=== PATIENT | male | born 1950 | race Caucasian/White ===

== ENCOUNTER → 2016-11-29 | Outpatient (CLI) | payer BC ==
[~2016-11-29] MED LIST: CHOL100010 PO; GLC/500 PO; LIRA18IN SQ; LOSA25TA18 PO
[2016-11-29 12:52] LABS: BLOOD UREA NITROGEN 18 mg/dl (7-18); BUN/CREATININE RATIO 18.2 (10-20); CALCIUM 10.1 mg/dl (8.5-10.1); CARBON DIOXIDE 26 mmol/L (21-32); CHLORIDE 102 mmol/L (98-107); GLUCOSE 107 mg/dl (70-99); POTASSIUM 4.2 mmol/L (3.5-5.1); SODIUM 138 mmol/L (136-145)
[2016-11-29 13:11] LABS: ESTIMATED AVERAGE GLUCOSE 134 mg/dl; HA1C FLAG Normal (Normal)
== END | disposition home or self-care (01) ==
LOC: C.LABPVFM 10:54
PROVIDERS: ATTEND Family Medicine
DX: E11.9 Type 2 diabetes mellitus without complications (principal)

== ENCOUNTER → 2017-04-27 | Outpatient (CLI) | payer BC ==
[2017-04-27 09:53] LABS: BLOOD UREA NITROGEN 23 mg/dl (7-18); BUN/CREATININE RATIO 19.2 (10-20); CALCIUM 9.7 mg/dl (8.5-10.1); CARBON DIOXIDE 28 mmol/L (21-32); CHLORIDE 102 mmol/L (98-107); GLUCOSE 134 mg/dl (70-99); POTASSIUM 4.6 mmol/L (3.5-5.1); SODIUM 138 mmol/L (136-145)
[2017-04-27 09:56] LABS: CHOLESTEROL 265 mg/dl (0-200); CHOLESTEROL/HDL RATIO 6.5; HDL CHOLESTEROL 41 mg/dl; LDL CHOLESTEROL CALCULATED 174 mg/dl; TRIGLYCERIDES 252 mg/dl (0-150); VERY LOW DENSITY LIPOPROT CALC 50 mg/dl
[2017-04-27 10:01] LABS: ESTIMATED AVERAGE GLUCOSE 157 mg/dl; HA1C FLAG Normal (Normal)
== END | disposition home or self-care (01) ==
LOC: C.LAB 07:35
PROVIDERS: ATTEND Family Medicine
DX: E78.2 Mixed hyperlipidemia (principal); E11.9 Type 2 diabetes mellitus without complications

== ENCOUNTER → 2017-09-08 | Outpatient (CLI) | payer BC ==
[2017-09-08 09:30] LABS: BLOOD UREA NITROGEN 16 mg/dl (7-18); BUN/CREATININE RATIO 13.9 (10-20); CARBON DIOXIDE 30 mmol/L (21-32); CHLORIDE 99 mmol/L (98-107); CHOLESTEROL 268 mg/dl (0-200); CREATININE 1.13 mg/dl (0.60-1.40); GLUCOSE 129 mg/dl (70-99); POTASSIUM 4.3 mmol/L (3.5-5.1); SODIUM 136 mmol/L (136-145)
[2017-09-08 09:34] LABS: CHOLESTEROL/HDL RATIO 6.5; HDL CHOLESTEROL 41 mg/dl; LDL CHOLESTEROL CALCULATED 160 mg/dl; TRIGLYCERIDES 337 mg/dl (0-150); VERY LOW DENSITY LIPOPROT CALC 67 mg/dl
[2017-09-09 07:36] LABS: ESTIMATED AVERAGE GLUCOSE 169 mg/dl; HA1C FLAG Normal (Normal)
== END | disposition home or self-care (01) ==
LOC: C.LAB 07:09
PROVIDERS: ATTEND Family Medicine
DX: E11.9 Type 2 diabetes mellitus without complications (principal); E78.2 Mixed hyperlipidemia

== ENCOUNTER → 2018-03-05 | Outpatient (CLI) | payer BC ==
[2018-03-05 09:50] LABS: BASO % 0.4 %; BASO ABS # 0.02 K/uL (0-0.2); EOS % 4.8 %; EOS ABS # 0.23 K/uL (0-0.5); HEMATOCRIT 44.9 % (42-52); HEMOGLOBIN 15.4 g/dL (14.0-18.0); IG# 0.02 K/uL (0.00-0.02); LYMPH % 39.3 %; MEAN CELL VOLUME 91.8 fL (80-100); MEAN CORPUSCULAR HEMOGLOBIN 31.5 pg (25-34); MEAN CORPUSCULAR HGB CONC 34.3 g/dl (32-36); MEAN PLATELET VOLUME 10.5 fL (7.4-10.4); MONO % 6.8 %; MONO ABS # 0.33 K/uL (0.11-0.59); NEUT % 48.3 %; NEUT ABS # 2.33 K/uL (1.4-6.5); PLATELET COUNT 136 K/uL (130-400); RED CELL DISTRIBUTION WIDTH CV 13.1 % (11.5-14.5); RED CELL DISTRIBUTION WIDTH SD 43.8 fL (36.4-46.3); WHITE BLOOD COUNT 4.83 K/uL (4.8-10.8)
[2018-03-05 10:03] LABS: ALBUMIN 4.5 gm/dl (3.4-5.0); ALKALINE PHOSPHATASE 55 U/L (45-117); ALT/SGPT 47 U/L (12-78); AST/SGOT 22 U/L (15-37); BLOOD UREA NITROGEN 19 mg/dl (7-18); CALCIUM 9.8 mg/dl (8.5-10.1); CARBON DIOXIDE 30 mmol/L (21-32); CHOLESTEROL 227 mg/dl (0-200); CREATININE 1.29 mg/dl (0.60-1.40); GLUCOSE 141 mg/dl (70-99); LDL CHOLESTEROL CALCULATED 141 mg/dl; POTASSIUM 4.2 mmol/L (3.5-5.1); SODIUM 138 mmol/L (136-145); TOTAL PROTEIN 7.6 gm/dl (6.4-8.2)
[2018-03-05 10:43] LABS: HEMOGLOBIN A1C 7.4 % (4.5-5.6)
== END | disposition home or self-care (01) ==
LOC: C.LAB 07:12
PROVIDERS: ATTEND Neuromusculoskeletal Medicine & OMM
DX: E11.9 Type 2 diabetes mellitus without complications (principal); E78.2 Mixed hyperlipidemia; I10 Essential (primary) hypertension

== ENCOUNTER 2025-04-24 11:03 | Inpatient (IN) ==
--- NOTE | 2025-04-24 11:23 | Emergency Department Note ---
Impression & Plan Weakness, Nausea Admission ED Provider Note HPI: History obtained from patient. The patient is a 75-year-old gentleman with history of rheumatoid arthritis, presents the emergency department with a chief complaint of generalized weakness. Patient states over the past 2 weeks since he has started his new medication (Rinvoq), he has generally had less energy to the point where he is now having difficulty getting out of bed because he feels so weak and fatigued. Patient denies any focal complaint of pain. Patient states his symptoms do correlate with starting his Rinvoq and he is concerned that this is the reason why he is feeling so weak. On arrival here to the ED the patient is alert, he is hypertensive but otherwise hemodynamically stable, he does not have any focal deficits on my initial evaluation. ROS: - Per HPI Differential Diagnosis: Medication reaction/side effect, viral gastroenteritis, small bowel obstruction, acute kidney injury/acute dehydration, critical electrolyte abnormalities,, amongst other potential pathologies. *Outpatient medications and allergy history reviewed. 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 Lab work shows no leukocytosis, hemoglobin is normal, platelet count is normal, CMP shows hyponatremia at 128 which is acute in comparison to the patient's previous lab work. There is no evidence of acute kidney injury, troponin is negative x 1. EKG shows sinus tachycardia with rate of 107, no acute ischemic changes are noted. Patient denies any chest pain or shortness of breath. On my reevaluation the patient states that he still feels very weak. He believes his symptoms correlate well with his initiation of Rinvoq, there is a side effect profile that suggest the risks of weakness and lethargy with this medication. Patient does also complain of severe nausea, reassessment he has an emesis bag at the bedside, this was not an initial complaint. Following my evaluation and discussion with the patient and his , CT imaging of the abdomen pelvis was obtained that did not show any evidence of any acute surgical process within the abdomen/pelvis. There is no evidence of bowel obstruction. I discussed outpatient management with the patient and his , they are in agreement, patient failed his ambulatory trial shortly thereafter, bedside RN said the patient was barely able to stand up at the side of the bed without becoming wobbly and off balance. He did not have any true ataxia on finger-nose testing bilaterally on my exam but he did have some delay in his ability to touch my fingers. Given his ambulatory dysfunction, I did order CT angiography of the head and neck, his states that he has had this issue most significantly over about the past 2 to 3 days, she notes that he did go to the grocery store by himself 4 days ago and seemed to do fine when he was ambulating throughout the store with a grocery cart. This is a marked change for him according to his . CT angiography of the head and neck was obtained, there is evidence of multiple areas of stenosis without any acute ischemic stroke or large vessel occlusion noted. No evidence of any intracranial hemorrhage. There is note of possible opacity in the left lung on senior audit manager film, therefore will order dedicated chest x- ray and urine Legionella given the patient's hyponatremia. Blood cultures were ordered and procalcitonin was added to the patient's blood work. Given the patient's inability to ambulate with hyponatremia, I do feel he needs to be admitted to the hospital for further care. He was given an aspirin here in the ED. He has been symptomatic here for multiple days therefore he is not a candidate for any potential thrombolytics. Case was discussed with the on-call [facility] service midlevel provider, and the patient was placed for admission to the service of Dr. Dorman. Consultants/Discussions held with other healthcare providers: - Hospitalist, Dr. Dorman Disposition discussion held by myself with: - Patient and patient's at the bedside Diagnosis: 1. Ambulatory dysfunction, acute 2. Hyponatremia, acute 3. Generalized weakness/fatigue, acute Disposition: Admission Miko Padilla DO Emergency Medicine Past Med/Surg History Problem List (Updated 04/24/25 @ 14:28 by Miko Padilla DO) Nausea (Acute) Weakness (Acute) Statin myopathy (Acute) Encounter for pre-operative examination Encounter for pre-operative examination Dog bite of finger (Acute) Type 2 diabetes mellitus Benign essential hypertension Male erectile disorder of organic origin Mixed hyperlipidemia Stage 3 chronic kidney disease Benign neoplasm of colon Medical History (Updated 04/24/25 @ 14:28 by Miko Padilla DO) Osteoarthritis Chronic kidney disease stage 3 Diabetes mellitus, type 2 NIDDM Hyperlipidemia Surgical History History of umbilical hernia repair History of colonoscopy Hx of tonsillectomy H/O adenoidectomy H/O vasectomy Family History Father Prostate cancer Urinary bladder cancer Unknown Diabetes Mother Breast cancer Other No family history of adverse response to anesthesia Denies family history of Colon cancer Ovarian cancer Myocardial infarction Social History Smoking Status: Former smoker Second Hand Exposure: Yes (hx as a child); Do You Dip or Chew Tobacco: No; Hx Alcohol Use: Yes Alcohol type: wine Alcohol Intake Frequency Comment: 1-2/ week Hx Substance Use: No Preferred Language: Syriac Communication Ability: Effective Visual Impairment: No Limitations Hearing Ability: Normal 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 Beliefs That Will Affect Care: None marital status: Current Living Situation: Spouse current occupational status: retired Feels Safe at Home: Yes Childhood Exposure to Second-Hand Smoke: Yes Dental Care, Regularly: Yes Physical Activity Frequency: 5-6 Times per Week Seatbelt Use: always Sunscreen Use: Yes Do you think of yourself as: straight/heterosexual Assistive Devices: None Allergies Allergies Allergy/AdvReac Type Severity Reaction Status Date / Time hydrocodone [From Vicodin] Allergy Severe itchy Verified 12/15/20 07:55 atorvastatin Allergy Intermediate muscle Verified 12/15/20 07:55 pains simvastatin [From Zocor] AdvReac Intermediate muscle Verified 12/15/20 07:55 pains niacin AdvReac Unknown flushing Verified 12/15/20 07:55 with burning and itching Home Meds Home Medications Medication Instructions Recorded Confirmed magnesium oxide 400 mg (241.3 mg 400 mg PO DAILY #30 tabs 06/13/19 12/15/20 magnesium) tablet vardenafil 20 mg tablet (Levitra) 20 mg PO UD PRN sexual activity 06/20/19 12/15/20 #30 tabs cholecalciferol (vitamin D3) 25 1,000 units PO DAILY 12/16/19 12/15/20 mcg (1,000 unit) capsule Previous Rx's Medication Instructions Recorded peg 3350-electrolytes 236 240 ml PO .COMPLEX #4,000 mL 12/24/19 gram-22.74 gram-6.74 gram-5.86 gram solution (Golytely) glimepiride 2 mg tablet 2 mg PO DAILY #180 tabs 06/16/20 losartan 25 mg tablet 25 mg PO DAILY #90 tabs 06/16/20 canagliflozin 100 mg tablet 100 mg PO DAILY #90 tabs 09/25/20 (Invokana) omega-3 acid ethyl esters 1 gram 1 cap PO DAILY #90 caps 11/04/20 capsule (Lovaza) ezetimibe 10 mg tablet (Zetia) 10 mg PO DAILY #90 tabs 11/18/20 metformin 500 mg tablet,extended 500 mg PO .COMPLEX #270 tabs 12/23/20 release 24 hr fenofibrate 160 mg tablet 160 mg PO DAILY #90 tabs 03/09/21 ondansetron HCl 4 mg tablet 4 mg PO Q8H PRN nausea and 04/24/25 vomiting 5 days #14 tabs Results & Data (ED) Vital Signs Vital Signs - 24 hr 04/24/25 11:04 04/24/25 11:14 04/24/25 11:19 Temperature 37.3 C Temperature Source Oral Pulse Rate 107 H 106 H Pulse Rate [Right Finger] Respiratory Rate 21 Respiratory Effort / Characteristics Respiratory Depth Normal Respiratory Pattern Blood Pressure 167/107 H Blood Pressure [Right Arm] Blood Pressure Mean 127 Blood Pressure Mean [Right Arm] Blood Pressure Position Semi-fowlers Blood Pressure Position [Right Arm] Pulse Oximetry 94 Oxygen Delivery Method Room Air Room Air Sepsis Recent Fever Within 48 Hours No Sepsis New/Unexplained Change in Mental Status No Sepsis Action Taken by Nursing No Action Required 04/24/25 11:33 04/24/25 12:06 04/24/25 12:30 Temperature Temperature Source Pulse Rate 103 H 98 H 103 H Pulse Rate [Right Finger] Respiratory Rate 19 21 28 H Respiratory Effort / Characteristics Respiratory Depth Respiratory Pattern Blood Pressure 165/121 H 163/98 H Blood Pressure [Right Arm] Blood Pressure Mean 135 119 Blood Pressure Mean [Right Arm] Blood Pressure Position Blood Pressure Position [Right Arm] Pulse Oximetry Oxygen Delivery Method Sepsis Recent Fever Within 48 Hours Sepsis New/Unexplained Change in Mental Status Sepsis Action Taken by Nursing 04/24/25 13:03 04/24/25 13:33 04/24/25 14:21 Temperature Temperature Source Pulse Rate 96 H 100 H 97 H Pulse Rate [Right Finger] Respiratory Rate 28 H 27 H 26 H Respiratory Effort / Characteristics Respiratory Depth Respiratory Pattern Blood Pressure 151/111 H 166/112 H Blood Pressure [Right Arm] Blood Pressure Mean 124 130 Blood Pressure Mean [Right Arm] Blood Pressure Position Blood Pressure Position [Right Arm] Pulse Oximetry Oxygen Delivery Method Sepsis Recent Fever Within 48 Hours Sepsis New/Unexplained Change in Mental Status Sepsis Action Taken by Nursing 04/24/25 15:47 Temperature Temperature Source Pulse Rate Pulse Rate [Right Finger] 101 H Respiratory Rate 16 Respiratory Effort / Characteristics Non-Labored Spontaneous Respiratory Depth Normal Respiratory Pattern Regular Blood Pressure Blood Pressure [Right Arm] 175/111 H Blood Pressure Mean Blood Pressure Mean [Right Arm] 132 Blood Pressure Position Blood Pressure Position [Right Arm] Sitting Pulse Oximetry Oxygen Delivery Method Room Air Sepsis Recent Fever Within 48 Hours Sepsis New/Unexplained Change in Mental Status Sepsis Action Taken by Nursing Laboratory Data 04/24/25 11:29 04/24/25 11:29 Lab Results 04/24/25 04/24/25 Range/Units 11:29 15:53 WBC 8.02 (4.8-10.8) K/ul RBC 4.63 L (4.70-6.10) M/uL Hgb 15.4 (14.0-18.0) g/dl Hct 44.2 (42.0-52.0) % MCV 95.5 (80.0-100.0) fL MCH 33.3 (25.0-34.0) pg MCHC 34.8 (32.0-36.0) g/dL RDW Std Deviation 42.6 (36.4-46.3) fL RDW Coeff of Drake 12.5 (11.5-14.5) % Plt Count 135 (130-400) K/uL MPV 10.4 (9.4-12.4) fL Immature Gran % (Auto) 0.4 % Neut % (Auto) 83.4 % Lymph % (Auto) 6.5 % Toombs % (Auto) 9.6 % Eos % (Auto) 0.0 % Baso % (Auto) 0.1 % Neut # (Auto) 6.69 H (1.40-6.50) K/uL Lymph # (Auto) 0.52 L (1.20-3.40) K/uL Toombs # (Auto) 0.77 H (0.11-0.59) K/uL Eos # (Auto) 0.00 (0.00-0.50) K/uL Baso # (Auto) 0.01 (0.00-0.20) K/uL Immature Gran # (Auto) 0.03 (0.01-0.20) K/uL PT 11.2 (9.0-12.0) Seconds INR 1.0 (0.9-1.1) Sodium 128 L (136-145) mmol/L Potassium 4.5 (3.5-5.1) mmol/L Chloride 95 L (98-107) mmol/L Carbon Dioxide 25 (21-32) mmol/L Anion Gap 8 (3-11) BUN 15 (6-23) mg/dl Creatinine 1.29 (0.6-1.4) mg/dl Est Cr Clr Drug Dosing 65.1 ml/min eGFR 57.11 BUN/Creatinine Ratio 11.6 (10-20) Glucose 189 H (70-99(Fasting)) mg/dl Calcium 9.9 (8.6-10.3) mg/dl Total Bilirubin 1.3 H (0.2-1.0) mg/dl AST 25 (13-39) U/L ALT 23 (7-52) U/L Alkaline Phosphatase 39 (34-104) U/L Troponin I High Sens 5.6 (0-20) pg/ml Total Protein 7.6 (6.0-8.3) gm/dl Albumin 4.8 (3.4-5.0) gm/dl Globulin 2.8 (2.5-4.0) gm/dl Albumin/Globulin Ratio 1.7 (0.9-2) Urine Comment Administered Medications Sodium Chloride (Nss) 1,000 mls @ 999 mls/hr IV .Q1H1M ONE Stop: 04/24/25 16:48 Last Admin: 04/24/25 15:51 Dose: 999 mls/hr Documented By: [facility] [place]ations Sodium Chloride (Nss) 500 mls @ 999 mls/hr IV .Q31M STA Stop: 04/24/25 11:50 Last Infusion: 04/24/25 14:16 Dose: Infused Documented By: Admin: 04/24/25 11:34 Dose: 999 mls/hr Documented By: CEF Ioversol (Optiray 320 100ml) 91 ml IV ONCE ONE Stop: 04/24/25 14:02 Last Admin: 04/24/25 14:01 Dose: 91 ml Documented By: MAHSA Ioversol (Optiray 320 125ml) 115 ml IV ONCE ONE Stop: 04/24/25 15:29 Last Admin: 04/24/25 15:28 Dose: 115 ml Documented By: REBECCA Meclizine HCl (Meclizine Hcl 25 Mg Tab) 25 mg PO NOW STA Stop: 04/24/25 14:49 Last Admin: 04/24/25 15:48 Dose: 25 mg Documented By: CARLOS Ondansetron HCl (Ondansetron Inj 2 Mg/Ml 2 Ml Vial) 4 mg IV NOW STA Stop: 04/24/25 13:40 Last Admin: 04/24/25 14:15 Dose: 4 mg Documented By: TERESA Imaging Data Radiologist's Impression: Abdomen/Pelvis CT 04/24/25 13:39 CT SCAN OF THE ABDOMEN AND PELVIS WITH IV CONTRAST CLINICAL HISTORY: Generalized abdominal pain. COMPARISON STUDY: No priors TECHNIQUE: Following the IV administration of 91 cc of Optiray 320, CT scan of the abdomen and pelvis is performed from the lung bases to the proximal femora. Images are reviewed in the axial, sagittal, and coronal planes. IV contrast was administered without complication. A dose lowering technique was utilized adhering to the principles of ALARA. The examination is degraded by motion artifact. CT DOSE: 1643.83 mGy.cm FINDINGS: Lung bases: The heart is enlarged and without pericardial effusion. The coronary arteries are densely calcified. There is a tiny hiatal hernia. Emphysematous change is noted. Scarring/atelectasis is seen at the lung bases. No airspace consolidation or pleural effusion is identified. Liver: The contrast-enhanced liver is enlarged, measuring over 20 cm in craniocaudal length. Attenuation is diffusely diminished indicating severe steatosis. Fatty sparing is seen adjacent to the gallbladder fossa. There is no intrahepatic biliary ductal dilatation. The hepatic veins and portal veins are patent. Gallbladder: Unremarkable. Spleen: Normal in size and attenuation. Pancreas: Unremarkable. Adrenal glands: There is nonspecific thickening of the adrenal glands. Kidneys: The contrast enhanced kidneys are normal in size and without hydronephrosis. The kidneys enhance symmetrically. A 6 mm nonobstructing calculus is seen in the right lower pole. No left renal calculi are identified on this contrast-enhanced examination and no ureteral stone is seen. Bilateral cortical and renal sinus cysts measure up to 1.8 cm. Abdominal vasculature: There is advanced atherosclerotic calcification and mild ectasia of the abdominal aorta. Bowel: There is mild to moderate clonic fecal retention. No bowel obstruction is seen. A small bowel loops contained within a right inguinal hernia. The appendix is not visualized. Peritoneum: There is no intraperitoneal free air or abdominal ascites. Lymphadenopathy: None. Pelvic viscera: The prostate gland is enlarged and heterogeneous. The bladder wall appears thickened/trabeculated indicating chronic outlet obstruction. A right large left inguinal hernias. The right inguinal hernia contains a segment of bowel. Skeletal structures: The skeletal structures are osteopenic. There is moderate lumbosacral spondylosis. No lytic or blastic lesions are seen. IMPRESSION: 1. No acute infectious or inflammatory findings are identified in the abdomen or pelvis. 2. Cardiomegaly and emphysema. 3. Right-sided nephrolithiasis. 4. There are right larger than left inguinal hernias. The right inguinal hernia contains a nonobstructed segment of small bowel. 5. The liver is enlarged and steatotic. 6. Additional findings as above. ACT 112: Negative or not required by law. Electronically signed by: Matt Landaverde M.D. 04/24/2025 2:22 PM Head CTA 04/24/25 14:47 CT angio head wo/w CLINICAL HISTORY: ataxia with ambulation COMPARISON STUDY: No previous studies for comparison. TECHNIQUE: Unenhanced and arterial phase imaging of the head was performed. Intravenous injection of 115 cc of Optiray 320 IV was uneventful. Sagittal and coronal reformats were viewed as well as maximal intensity projections on an independent 3-D workstation. A dose lowering technique was utilized adhering to the principles of ALARA. FINDINGS: This exam is mildly compromised by motion artifact. Intravascular contrast from recent contrast-enhanced CT of the abdomen and pelvis is present. No acute intracranial hemorrhage, midline shift or mass effect is present. Ventricular system is unremarkable. White matter hypodensities suggest small vessel disease. There is extensive calcified atherosclerotic plaque within the bilateral cavernous carotids which results in moderate stenosis of the cavernous carotids. There are are moderate to severe multifocal stenoses within the right middle cerebral artery. There is moderate stenosis of the intracranial portion of left vertebral artery as well as the basilar artery. Posterior cerebral arteries are patent. No large vessel occlusion is identified. There is no intracranial aneurysm. IMPRESSION: 1. No acute intracranial findings. Mild motion artifact. 2. No large vessel occlusion. No intracranial aneurysm. 3. 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 ACT 112: Negative or not required by law. Electronically signed by: Pepito Taylor M.D. 04/24/2025 3:48 PM Neck CTA 04/24/25 14:47 CT ANGIOGRAM OF THE NECK CLINICAL HISTORY: Ataxia. COMPARISON STUDY: No priors TECHNIQUE: Following the IV administration of 115 of Optiray 320, CT angiogram of the neck was performed from the aortic arch to the skull base. Images are reviewed in the axial, sagittal, and coronal planes. 3-D MIPS images are created and assessed. IV contrast was administered without complication. All measurements were calculated based on NASCET criteria. A dose lowering technique was utilized adhering to the principles of ALARA. FINDINGS: Thoracic aorta: There is atherosclerotic calcification of the thoracic aorta. Visualized portions of the thoracic aorta are normal in caliber. The aortic arch demonstrates standard 3-vessel anatomy. Right carotid arterial system: The right common carotid artery is widely patent noting atherosclerotic plaque and irregularity. There is advanced atherosclerotic plaque in the carotid bulb. This causes high-grade focal stenosis with near complete occlusion/trace flow at the origin of the right internal carotid artery. The mid to distal portion of the vessel are patent, as is the right external carotid artery. Left carotid arterial system: The left common carotid artery is widely patent noting atherosclerotic plaque and irregularity. There is advanced atherosclerotic plaque in the carotid bulb. This causes 50-60% focal stenosis of the origin of the left internal carotid artery. The mid to distal portions of the left internal carotid artery are widely patent, as is the left external carotid artery. Vertebral arteries: The vertebral arteries are patent in the neck bilaterally and codominant. Subclavian arteries: Widely patent bilaterally. Intracranial vasculature: The visualized intracranial vessels at the skull base are patent. There is moderate focal stenosis of the left vertebral artery seen on axial image #340. See report of CT angiogram of the brain performed concurrently for detailed intracranial findings. Jugular veins: Patent bilaterally. Brain parenchyma: The visualized brain parenchyma the skull base is within normal limits. Lung apices: There is moderate emphysema. A 9 mm pulmonary nodule is seen in the right upper lobe on image #1. Airspace consolidation is suggested in the left midlung on the senior audit manager tomogram. Soft tissues: The visualized pharyngeal soft tissues are normal in appearance noting angiographic phase technique. The oropharyngeal airway appears widely patent. The salivary and thyroid glands are normal in appearance. No cervical lymphadenopathy is seen. Skeletal structures: The skeletal structures are osteopenic. The visualized calvarium at the skull base appears intact. The imaged cervical spine is maintained noting multilevel spondylosis. Sinuses and mastoids: There is trace mucosal thickening in the right maxillary antrum. The left sphenoid sinus is completely opacified. The mastoid air cells are well pneumatized IMPRESSION: 1. Advanced atherosclerotic plaque with high-grade/critical stenosis at the origin of the right internal carotid artery. There is only trace flow. The vessel is patent distally. 2. There is 50-69% focal stenosis at the origin of the left internal carotid artery. 3. The vertebral arteries are patent in the neck bilaterally and codominant. 4. There is moderate focal stenosis of the left vertebral artery at the skull base. 5. Emphysema. 6. There is a 9 mm right upper lobe pulmonary nodule. A nonemergent chest CT is recommended for further assessment and full evaluation of the thorax. 7. Airspace consolidation is suggested in the left midlung on the senior audit manager tomogram. Correlate with a chest x-ray. 8. Additional findings as above. ACT 112: Positive. There are findings on this exam that require communication between the performing entity and the patient following Patient Test Result Information Act ([place] Act 112) guidelines. Electronically signed by: Matt Landaverde M.D. 04/24/2025 3:42 PM Discharge Plan Visit Data Chief Complaint: Weakness Stated Complaint: WEAKNESS, LETHARGIC ED Provider: Miko Padilla Discharge Problem: Weakness, Nausea Patient Disposition: Home - Self-Care Condition: Good Discharge Instructions Krames/Other Patient Handouts: ED Weakness with Uncertain Cause Activity Restrictions/Additional Instructions: Please follow-up with your primary care doctor in 2 to 3 days for reassessment and further management. Please call your PCP in regards to whether or not you should continue taking your RINVOQ. Please return to the emergency room if you develop any new or acutely worsening symptoms. Forms Stand Alone Forms: My [facility], Important Visit Information Prescriptions Prescriptions: New ondansetron HCl 4 mg tablet 4 mg PO Q8H PRN (Reason: nausea and vomiting) 5 Days Qty: 14 0RF No Action peg 3350-electrolytes [Golytely] 236-22.74-6.74 -5.86 gram recon soln 240 ml PO .COMPLEX Qty: 4000 0RF Rx Instructions: 240 mL PO use as per split dose instructions; drink half at 6 pm the night before the test, drink the second half 6 hrs before test. Invokana 100 mg tablet 100 mg PO DAILY Qty: 90 3RF Rx Instructions: qam omega-3 acid ethyl esters [Lovaza] 1 gram capsule 1 cap PO DAILY Qty: 90 3RF ezetimibe [Zetia] 10 mg tablet 10 mg PO DAILY Qty: 90 3RF metformin 500 mg tablet extended release 24 hr 500 mg PO .COMPLEX Qty: 270 1RF Rx Instructions: 500 mg PO 2 tablets QAM and 1 tablet QPM; fenofibrate 160 mg tablet 160 mg PO DAILY Qty: 90 1RF Rx Instructions: qam magnesium oxide 400 mg (241.3 mg magnesium) tablet 400 mg PO DAILY Qty: 30 Rx Instructions: qam vardenafil [Levitra] 20 mg tablet 20 mg PO UD PRN (Reason: sexual activity) Qty: 30 cholecalciferol (vitamin D3) 25 mcg (1,000 unit) capsule 1,000 units PO DAILY glimepiride 2 mg tablet 2 mg PO DAILY Qty: 180 1RF Rx Instructions: qam losartan 25 mg tablet 25 mg PO DAILY Qty: 90 3RF Rx Instructions: qpm Referrals Referrals: PCP,NO [Physician] -
[2025-04-24] MEDS: SODIUM CHLORIDE 0.9% 500 ML IV STA (11:34)
[2025-04-24 11:42] LABS: Hematocrit (blood only) 44.2 % (42.0-52.0); Hemoglobin 15.4 g/dl (14.0-18.0); Immature Granulocytes # (auto) 0.03 K/uL (0.01-0.20); Immature Granulocytes % (auto) 0.4 %; Mean Corpuscular Hemoglobin 33.3 pg (25.0-34.0); Mean Corpuscular Volume 95.5 fL (80.0-100.0); Platelet Count 135 K/uL (130-400); RDW Standard Deviation 42.6 fL (36.4-46.3); Red Blood Count 4.63 M/uL (4.70-6.10); White Blood Count 8.02 K/ul (4.8-10.8)
[2025-04-24 11:59] LABS: Anion Gap 8.0 (3-11); Bilirubin,Total 1.3 mg/dl (0.2-1.0); Calcium 9.9 mg/dl (8.6-10.3); Carbon Dioxide 25.0 mmol/L (21-32); Chloride 95.0 mmol/L (98-107); Potassium 4.5 mmol/L (3.5-5.1); Sodium 128.0 mmol/L (136-145)
[2025-04-24 12:05] LABS: Alanine Aminotransferase 23.0 U/L (7-52); Albumin Globulin Ratio 1.7 (0.9-2); Alkaline Phosphatase 39.0 U/L (34-104); Blood Urea Nitrogen 15.0 mg/dl (6-23); Creatinine Clr Calc Pharmacy 65.1 ml/min; Globulin 2.8 gm/dl (2.5-4.0); Glucose 189.0 mg/dl (70-99(Fasting)); Total Protein 7.6 gm/dl (6.0-8.3)
[2025-04-24 12:08] LABS: INR 1.0 (0.9-1.1); Prothrombin Time 11.2 Seconds (9.0-12.0)
[2025-04-24] MEDS: OPTIRAY 320 100ml IV ONE (14:01)
[2025-04-24] MEDS: ONDANSETRON INJ 2 MG/ML 2 ML VIAL IV STA (14:15)
--- NOTE | 2025-04-24 14:23 | CT Scan Report ---
CT SCAN OF THE ABDOMEN AND PELVIS WITH IV CONTRAST CLINICAL HISTORY: Generalized abdominal pain. COMPARISON STUDY: No priors TECHNIQUE: Following the IV administration of 91 cc of Optiray 320, CT scan of the abdomen and pelvi s is performed from the lung bases to the proximal femora. Images are reviewed in the axial, sagittal , and coronal planes. IV contrast was administered without complication. A dose lowering technique wa s utilized adhering to the principles of ALARA. The examination is degraded by motion artifact. CT DOSE: 1643.83 mGy.cm FINDINGS: Lung bases: The heart is enlarged and without pericardial effusion. The coronary arteries are densely calcified. There is a tiny hiatal hernia. Emphysematous change is noted. Scarring/atelectasis is see n at the lung bases. No airspace consolidation or pleural effusion is identified. Liver: The contrast-enhanced liver is enlarged, measuring over 20 cm in craniocaudal length. Attenuat ion is diffusely diminished indicating severe steatosis. Fatty sparing is seen adjacent to the gallbl adder fossa. There is no intrahepatic biliary ductal dilatation. The hepatic veins and portal veins a re patent. Gallbladder: Unremarkable. Spleen: Normal in size and attenuation. Pancreas: Unremarkable. Adrenal glands: There is nonspecific thickening of the adrenal glands. Kidneys: The contrast enhanced kidneys are normal in size and without hydronephrosis. The kidneys enh ance symmetrically. A 6 mm nonobstructing calculus is seen in the right lower pole. No left renal eron culi are identified on this contrast-enhanced examination and no ureteral stone is seen. Bilateral co rtical and renal sinus cysts measure up to 1.8 cm. Abdominal vasculature: There is advanced atherosclerotic calcification and mild ectasia of the abdomi nal aorta. Bowel: There is mild to moderate clonic fecal retention. No bowel obstruction is seen. A small bowel loops contained within a right inguinal hernia. The appendix is not visualized. Peritoneum: There is no intraperitoneal free air or abdominal ascites. Lymphadenopathy: None. Pelvic viscera: The prostate gland is enlarged and heterogeneous. The bladder wall appears thickened/ trabeculated indicating chronic outlet obstruction. A right large left inguinal hernias. The right in guinal hernia contains a segment of bowel. Skeletal structures: The skeletal structures are osteopenic. There is moderate lumbosacral spondylosi s. No lytic or blastic lesions are seen. IMPRESSION: 1. No acute infectious or inflammatory findings are identified in the abdomen or pelvis. 2. Cardiomegaly and emphysema. 3. Right-sided nephrolithiasis. 4. There are right larger than left inguinal hernias. The right inguinal hernia contains a nonobstruc dhruv segment of small bowel. 5. The liver is enlarged and steatotic. 6. Additional findings as above. ACT 112: Negative or not required by law. Electronically signed by: Matt Landaverde M.D. 04/24/2025 2:22 PM
[2025-04-24] MEDS: OPTIRAY 320 125ml IV ONE (15:28)
--- NOTE | 2025-04-24 15:44 | CT Scan Report ---
CT ANGIOGRAM OF THE NECK CLINICAL HISTORY: Ataxia. COMPARISON STUDY: No priors TECHNIQUE: Following the IV administration of 115 of Optiray 320, CT angiogram of the neck was perfor med from the aortic arch to the skull base. Images are reviewed in the axial, sagittal, and coronal p lanes. 3-D MIPS images are created and assessed. IV contrast was administered without complication. A ll measurements were calculated based on NASCET criteria. A dose lowering technique was utilized adh ering to the principles of ALARA. FINDINGS: Thoracic aorta: There is atherosclerotic calcification of the thoracic aorta. Visualized portions of the thoracic aorta are normal in caliber. The aortic arch demonstrates standard 3-vessel anatomy. Right carotid arterial system: The right common carotid artery is widely patent noting atheroscleroti c plaque and irregularity. There is advanced atherosclerotic plaque in the carotid bulb. This causes high-grade focal stenosis with near complete occlusion/trace flow at the origin of the right internal carotid artery. The mid to distal portion of the vessel are patent, as is the right external carotid artery. Left carotid arterial system: The left common carotid artery is widely patent noting atherosclerotic plaque and irregularity. There is advanced atherosclerotic plaque in the carotid bulb. This causes 50 -60% focal stenosis of the origin of the left internal carotid artery. The mid to distal portions of the left internal carotid artery are widely patent, as is the left external carotid artery. Vertebral arteries: The vertebral arteries are patent in the neck bilaterally and codominant. Subclavian arteries: Widely patent bilaterally. Intracranial vasculature: The visualized intracranial vessels at the skull base are patent. There is moderate focal stenosis of the left vertebral artery seen on axial image #340. See report of CT angio gram of the brain performed concurrently for detailed intracranial findings. Jugular veins: Patent bilaterally. Brain parenchyma: The visualized brain parenchyma the skull base is within normal limits. Lung apices: There is moderate emphysema. A 9 mm pulmonary nodule is seen in the right upper lobe on image #1. Airspace consolidation is suggested in the left midlung on the row boss tomogram. Soft tissues: The visualized pharyngeal soft tissues are normal in appearance noting angiographic pha se technique. The oropharyngeal airway appears widely patent. The salivary and thyroid glands are nor mal in appearance. No cervical lymphadenopathy is seen. Skeletal structures: The skeletal structures are osteopenic. The visualized calvarium at the skull ba se appears intact. The imaged cervical spine is maintained noting multilevel spondylosis. Sinuses and mastoids: There is trace mucosal thickening in the right maxillary antrum. The left sphen oid sinus is completely opacified. The mastoid air cells are well pneumatized IMPRESSION: 1. Advanced atherosclerotic plaque with high-grade/critical stenosis at the origin of the right inter nal carotid artery. There is only trace flow. The vessel is patent distally. 2. There is 50-69% focal stenosis at the origin of the left internal carotid artery. 3. The vertebral arteries are patent in the neck bilaterally and codominant. 4. There is moderate focal stenosis of the left vertebral artery at the skull base. 5. Emphysema. 6. There is a 9 mm right upper lobe pulmonary nodule. A nonemergent chest CT is recommended for [facility] assessment and full evaluation of the thorax. 7. Airspace consolidation is suggested in the left midlung on the row boss tomogram. Correlate with a est x-ray. 8. Additional findings as above. ACT 112: Positive. There are findings on this exam that require communication between the performing entity and the patient following Patient Test Result Information Act ([place] Act 112) guidelines. Electronically signed by: Matt Landaverde M.D. 04/24/2025 3:42 PM
[2025-04-24] MEDS: MECLIZINE HCL 25 MG TAB PO STA (15:48)
--- NOTE | 2025-04-24 15:49 | CT Scan Report ---
CT angio head wo/w CLINICAL HISTORY: ataxia with ambulation COMPARISON STUDY: No previous studies for comparison. TECHNIQUE: Unenhanced and arterial phase imaging of the head was performed. Intravenous injection of 115 cc of Optiray 320 IV was uneventful. Sagittal and coronal reformats were viewed as well as lucia l intensity projections on an independent 3-D workstation. A dose lowering technique was utilized adh ering to the principles of ALARA. FINDINGS: This exam is mildly compromised by motion artifact. Intravascular contrast from recent cont rast-enhanced CT of the abdomen and pelvis is present. No acute intracranial hemorrhage, midline shif t or mass effect is present. Ventricular system is unremarkable. White matter hypodensities suggest s mall vessel disease. There is extensive calcified atherosclerotic plaque within the bilateral caverno us carotids which results in moderate stenosis of the cavernous carotids. There are are moderate to s evere multifocal stenoses within the right middle cerebral artery. There is moderate stenosis of the intracranial portion of left vertebral artery as well as the basilar artery. Posterior cerebral arter ies are patent. No large vessel occlusion is identified. There is no intracranial aneurysm. IMPRESSION: 1. No acute intracranial findings. Mild motion artifact. 2. No large vessel occlusion. No intracranial aneurysm. 3. 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 ACT 112: Negative or not required by law. Electronically signed by: Pepito Taylor M.D. 04/24/2025 3:48 PM
[2025-04-24] MEDS: SODIUM CHLORIDE 0.9% 1,000 ML IV ONE (15:51)
[2025-04-24 16:07] LABS: Appearance Urine Clear (Clear); Bacteria Urine Automated 1+ (None Seen); Cast Urine Automated 0-2 /lpf (0-2); Epithelial Cell Urine Auto 0-2 /hpf (0-2); Glucose Urine UA Negative (Negative); RBC Urine Automated 0-2 /hpf (0-2)
--- NOTE | 2025-04-24 16:14 | XRay Report ---
Chest radiograph, one view History: Weakness Comparison: None Findings/impression: Single AP view of the chest performed. Some underlying, likely chronic thin curvilinear opacity which may represent fibrotic change or emphysema appears to be present. There is additionally an area of consolidation in the periphery of the mid left lung which is suspicious for infection. The cardiomediastinal silhouette and pulmonary vascularity are within normal limits. No pneumothorax. No acute bony abnormalities. Electronically signed by Mike Slade 04-24-2025 4:14 PM
[2025-04-24] MEDS: ASPIRIN CHEW 324 MG PO STA (16:16)
--- NOTE | 2025-04-24 16:19 | History & Physical Report ---
Date of Service April 24, 2025 Assessment & Plan (1) Nausea: (2) Weakness: (3) Type 2 diabetes mellitus: (4) Benign essential hypertension: (5) Mixed hyperlipidemia: (6) Diabetes mellitus, type 2: (7) Hyperlipidemia: Plan The patient is a 75-year-old male who presents to the ED on 04/24/2025 with complaints of worsening generalized weakness over the past 3 days. History of RA recently started on Rinvoq about 7 days ago Ambulatory dysfunction Generalized weakness Hyponatremia Reports worsening weakness over the past 3 days, no focal deficits on exam Neck CTA with left ICA stenosis, consult vascular, head CT negative for any acute findings Check head MRI, consult neuro, suspect secondary to initiation of Rinvoq and hyponatremia/poor appetite Hyponatremia likely secondary to dehydration and poor solute intake, gentle hydration, CTM Community-acquired pneumonia: Noted on imaging, also reports recent cough over the past few days Will cover with IV cefepime/Doxy with concern for being immunocompromised Suspected UTI: UA positive, urine culture pending, cefepime should cover, await cultures Hx RA: Recently started on Rinvoq 1 week ago, -Patient reports has trialed many medications that has eventually stopped working Hold Rinvoq for now Hx DM2: Hold metformin/glimepiride, also managed on Lantus 48 units at bedtime Start Lantus 24 units at bedtime, SSI/ready BGM, consult glycemic pharmacy Hx HLD/HTN: Continue losartan, Zetia, fenofibrate A total of 60 minutes was spent on reviewing diagnostic data/chart review/facilitating plan of care/discussion with consultants Full code DVT prophylaxis: Lovenox History of Present Illness Chief Complaint: Ambulatory dysfunction, generalized weakness Primary Care Provider: Eleazar Tena MD The patient is a 75-year-old male with a past medical history of RA, DM2, HLD, HTN who presents to the ED on 04/24/25 with complaints of generalized weakness s lowly worsening over the past 3 days. Pt reports recently being started on rinvoq 1 week ago for RA. Symptoms started about 3 days ago. Patient's reports that the patient was able [place] walk around [place] car [place] the [place] and he is barely able to get out of bed at this point. Also reports persistent nausea and lack of appetite over the past few days. On arrival to the ED, labs remarkable for NA 128, chloride 95, glucose 199, total bili 1.3 Chest x-ray shows: Some underlying, likely chronic thin curvilinear opacity which may represent fibrotic change or emphysema appears to be present. There is additionally an area of consolidation in the periphery of the mid left lung which is suspicious for infection. The cardiomediastinal silhouette and pulmonary vascularity are within normal limits. No pneumothorax. Neck CTA showed: 1. Advanced atherosclerotic plaque with high-grade/critical stenosis at the origin of the right internal carotid artery. There is only trace flow. The vessel is patent distally. 2. There is 50-69% focal stenosis at the origin of the left internal carotid artery. 3. The vertebral arteries are patent in the neck bilaterally and codominant. 4. There is moderate focal stenosis of the left vertebral artery at the skull base. 5. Emphysema. 6. There is a 9 mm right upper lobe pulmonary nodule. A nonemergent chest CT is recommended for further assessment and full evaluation of the thorax. 7. Airspace consolidation is suggested in the left midlung on the die maintenance technician tomogram. Correlate with a chest x-ray. 8. Additional findings as above. Head CTA showed: 1. No acute intracranial findings. Mild motion artifact. 2. No large vessel occlusion. No intracranial aneurysm. 3. 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 Abdomen/pelvis showed: 1. No acute infectious or inflammatory findings are identified in the abdomen or pelvis. 2. Cardiomegaly and emphysema. 3. Right-sided nephrolithiasis. 4. There are right larger than left inguinal hernias. The right inguinal hernia contains a nonobstructed segment of small bowel. 5. The liver is enlarged and steatotic. 6. Additional findings as above. Urinalysis was sent a urine culture is pending The patient be admitted for further workup of worsening generalized weakness Allergies Allergy/AdvReac Type Severity Reaction Status Date / Time hydrocodone [From Vicodin] Allergy Severe itchy Verified 04/24/25 17:06 atorvastatin Allergy Intermediate muscle Verified 04/24/25 17:06 pains simvastatin [From Zocor] AdvReac Intermediate muscle Verified 04/24/25 17:06 pains niacin AdvReac Unknown flushing Verified 04/24/25 17:06 with burning and itching Home Medications Medication Instructions Recorded Confirmed Type magnesium oxide 400 mg (241.3 mg 400 mg PO DAILY #30 tabs 06/13/19 04/24/25 History magnesium) tablet cholecalciferol (vitamin D3) 25 1,000 units PO DAILY 12/16/19 04/24/25 History mcg (1,000 unit) capsule losartan 25 mg tablet 25 mg PO DAILY #90 tabs 06/16/20 04/24/25 Rx omega-3 acid ethyl esters 1 gram 1 cap PO DAILY #90 caps 11/04/20 04/24/25 Rx capsule (Lovaza) ezetimibe 10 mg tablet (Zetia) 10 mg PO DAILY #90 tabs 11/18/20 04/24/25 Rx fenofibrate 160 mg tablet 160 mg PO DAILY #90 tabs 03/09/21 04/24/25 Rx metformin 500 mg tablet,extended 1,000 mg PO QAM 04/24/25 04/24/25 History release 24 hr metformin 500 mg tablet,extended 500 mg PO HS 04/24/25 04/24/25 History release 24 hr omeprazole magnesium 20 mg 20 mg PO DAILY 04/24/25 04/24/25 History tablet,delayed release (Prilosec OTC) ondansetron HCl 4 mg tablet 4 mg PO Q8H PRN nausea and 04/24/25 04/24/25 Rx vomiting 5 days #14 tabs vardenafil 20 mg tablet 20 mg PO UD PRN Sexual Activity 04/24/25 04/24/25 History Past Med/Surg History Problem List (Updated 04/24/25 @ 14:28 by Miko Padilla DO) Nausea (Acute) Weakness (Acute) Statin myopathy (Acute) Encounter for pre-operative examination Encounter for pre-operative examination Dog bite of finger (Acute) Type 2 diabetes mellitus Benign essential hypertension Male erectile disorder of organic origin Mixed hyperlipidemia Stage 3 chronic kidney disease Benign neoplasm of colon Medical History (Updated 04/24/25 @ 14:28 by Miko Padilla DO) Osteoarthritis Chronic kidney disease stage 3 Diabetes mellitus, type 2 NIDDM Hyperlipidemia Surgical History History of umbilical hernia repair History of colonoscopy Hx of tonsillectomy H/O adenoidectomy H/O vasectomy Family History Father Prostate cancer Urinary bladder cancer Unknown Diabetes Mother Breast cancer Other No family history of adverse response to anesthesia Denies family history of Colon cancer Ovarian cancer Myocardial infarction Social History Smoking Status: Former smoker Tobacco Type: Cigarettes Second Hand Exposure: Yes (hx as a child); Do You Dip or Chew Tobacco: No; Hx Alcohol Use: Yes Alcohol type: beer Alcohol Intake Frequency Comment: 1-2/ week Hx Substance Use: No Preferred Language: Hungarian Communication Ability: Effective Visual Impairment: No Limitations Hearing Ability: Normal Cutter Finisher Required: No Beliefs That Will Affect Care: None marital status: Current Living Situation: Spouse current occupational status: retired Feels Safe at Home: Yes Safety Concerns: Feels Safe At This Time Childhood Exposure to Second-Hand Smoke: Yes Dental Care, Regularly: Yes Physical Activity Frequency: 5-6 Times per Week Seatbelt Use: always Sunscreen Use: Yes Do you think of yourself as: straight/heterosexual Assistive Devices: Walker Review of Systems Review of Systems: All systems reviewed & are unremarkable except as noted in HPI & below Physical Exam Constitutional: WD/WN, vitals as above Eyes: PERRL, conjunctivae normal, anicteric sclerae ENMT: external ear and nose normal, oropharynx normal Respiratory: normal respiratory effort, lungs clear to auscultation Cardiovascular: RRR, no murmur, no edema (Bilateral +2 lower extremity edema) Gastrointestinal (Abdomen): normal bowel sounds, soft, nontender, no hepatosplenomegaly Musculoskeletal: no cyanosis or clubbing, extremities motor strength 5/5 Skin: no rashes, warm and dry Neurologic: PERRL, EOMI, accommodation nl, no face palsy, no dysarthria Psychiatric: A+Ox3, euthymic affect Lymphatic: no cervical or axillary lymphadenopathy Results & Data Results & Data Vital Signs (Past 12 Hours) Vital Signs Temp Pulse Pulse Resp BP BP Pulse Ox 04/24/25 15:47 101 H 16 175/111 H 04/24/25 14:21 97 H 26 H 04/24/25 13:33 100 H 27 H 166/112 H 04/24/25 13:03 96 H 28 H 151/111 H 04/24/25 12:30 103 H 28 H 163/98 H 04/24/25 12:06 98 H 21 04/24/25 11:33 103 H 19 165/121 H 04/24/25 11:19 04/24/25 11:14 106 H 04/24/25 11:04 37.3 C 107 H 21 167/107 H 94 O2 Del Method 04/24/25 15:47 Room Air 04/24/25 14:21 04/24/25 13:33 04/24/25 13:03 04/24/25 12:30 04/24/25 12:06 04/24/25 11:33 04/24/25 11:19 Room Air 04/24/25 11:14 04/24/25 11:04 Room Air Laboratory Results Laboratory Results WBC 8.02 K/ul (4.8-10.8) 04/24/25 11:29 RBC 4.63 M/uL (4.70-6.10) L 04/24/25 11:29 Hgb 15.4 g/dl (14.0-18.0) 04/24/25 11:29 Hct 44.2 % (42.0-52.0) 04/24/25 11: MCV 95.5 fL (80.0-100.0) 04/24/25 11: MCH 33.3 pg (25.0-34.0) 04/24/25 11: MCHC 34.8 g/dL (32.0-36.0) 04/24/25 11:29 RDW Std Deviation 42.6 fL (36.4-46.3) 04/24/25 11:29 RDW Coeff of Drake 12.5 % (11.5-14.5) 04/24/25 11:29 Plt Count 135 K/uL (130-400) 04/24/25 11: MPV 10.4 fL (9.4-12.4) 04/24/25 11:29 Immature Gran % (Auto) 0.4 % 04/24/25 11: Neut % (Auto) 83.4 % 04/24/25 11: Lymph % (Auto) 6.5 % 04/24/25 11: [place]itt % (Auto) 9.6 % 04/24/25 11:29 Eos % (Auto) 0.0 % 04/24/25 11:29 Baso % (Auto) 0.1 % 04/24/25 11: Neut # (Auto) 6.69 K/uL (1.40-6.50) H 04/24/25 11: Lymph # (Auto) 0.52 K/uL (1.20-3.40) L 04/24/25 11: Dewitt # (Auto) 0.77 K/uL (0.11-0.59) H 04/24/25 11: Eos # (Auto) 0.00 K/uL (0.00-0.50) 04/24/25 11: Baso # (Auto) 0.01 K/uL (0.00-0.20) 04/24/25 11: Immature Gran # (Auto) 0.03 K/uL (0.01-0.20) 04/24/25 11: PT 11.2 Seconds (9.0-12.0) 04/24/25 11: INR 1.0 (0.9-1.1) 04/24/25 11: Sodium 128 mmol/L (136-145) L 04/24/25 11: Potassium 4.5 mmol/L (3.5-5.1) 04/24/25 11: Chloride 95 mmol/L (98-107) L 04/24/25 11: Carbon Dioxide 25 mmol/L (21-32) 04/24/25 11: Anion Gap 8 (3-11) 04/24/25 11: BUN 15 mg/dl (6-23) 04/24/25 11: Creatinine 1.29 mg/dl (0.6-1.4) 04/24/25 11: Est Cr Clr Drug Dosing 65.1 ml/min 04/24/25 11: eGFR 57.11 04/24/25 11: BUN/Creatinine Ratio 11.6 (10-20) 04/24/25 11: Glucose 189 mg/dl (70-99(Fasting)) H 04/24/25 11: Calcium 9.9 mg/dl (8.6-10.3) 04/24/25 11: Total Bilirubin 1.3 mg/dl (0.2-1.0) H 04/24/25 11:29 AST 25 U/L (13-39) 04/24/25 11:29 ALT 23 U/L (7-52) 04/24/25 11: Alkaline Phosphatase 39 U/L (34-104) 04/24/25 11: Troponin I High Sens 5.6 pg/ml (0-20) 04/24/25 11:29 Total Protein 7.6 gm/dl (6.0-8.3) 04/24/25 11: Albumin 4.8 gm/dl (3.4-5.0) 04/24/25 11: Globulin 2.8 gm/dl (2.5-4.0) 04/24/25 11: Albumin/Globulin Ratio 1.7 (0.9-2) 04/24/25 11: Urine Color Yellow 04/24/25 15:53 Urine Appearance Clear (Clear) 04/24/25 15:53 Urine pH 8.0 (4.5-7.5) H 04/24/25 15:53 Ur Specific [place] > 1.045 (1.000-1.030) H 04/24/25 15:53 Urine Protein Trace (Negative) H 04/24/25 15:53 Urine Glucose (UA) Negative (Negative) 04/24/25 15:53 Urine Ketones Negative (Negative) 04/24/25 15:53 Urine Blood Negative (Negative) 04/24/25 15:53 Urine Nitrite Negative (Negative) 04/24/25 15:53 Urine Bilirubin Negative (Negative) 04/24/25 15:53 Urine Urobilinogen Negative (Negative) 04/24/25 15:53 Ur Leukocyte Esterase 1+ (Negative) H 04/24/25 15:53 Urine WBC (Auto) 11-20 /hpf (0-5) H 04/24/25 15:53 Urine RBC (Auto) 0-2 /hpf (0-2) 04/24/25 15:53 U Hyaline Cast (Auto) 0-2 /lpf (0-2) 04/24/25 15:53 U Epithel Cells (Auto) 0-2 /hpf (0-2) 04/24/25 15:53 Urine Bacteria (Auto) 1+ (None Seen) H 04/24/25 15:53 Urine Comment 04/24/25 15:53 Impressions Abdomen/Pelvis CT 04/24/25 13:39 CT SCAN OF THE ABDOMEN AND PELVIS WITH IV CONTRAST CLINICAL HISTORY: Generalized abdominal pain. COMPARISON STUDY: No priors TECHNIQUE: Following the IV administration of 91 cc of Optiray 320, CT scan of the abdomen and pelvis is performed from the lung bases to the proximal femora. Images are reviewed in the axial, sagittal, and coronal planes. IV contrast was administered without complication. A dose lowering technique was utilized adhering to the principles of ALARA. The examination is degraded by motion artifact. CT DOSE: 1643.83 mGy.cm FINDINGS: Lung bases: The heart is enlarged and without pericardial effusion. The coronary arteries are densely calcified. There is a tiny hiatal hernia. Emphysematous change is noted. Scarring/atelectasis is seen at the lung bases. No airspace consolidation or pleural effusion is identified. Liver: The contrast-enhanced liver is enlarged, measuring over 20 cm in craniocaudal length. Attenuation is diffusely diminished indicating severe steatosis. Fatty sparing is seen adjacent to the gallbladder fossa. There is no intrahepatic biliary ductal dilatation. The hepatic veins and portal veins are patent. Gallbladder: Unremarkable. Spleen: Normal in size and attenuation. Pancreas: Unremarkable. Adrenal glands: There is nonspecific thickening of the adrenal glands. Kidneys: The contrast enhanced kidneys are normal in size and without hydronephrosis. The kidneys enhance symmetrically. A 6 mm nonobstructing calculus is seen in the right lower pole. No left renal calculi are identified on this contrast-enhanced examination and no ureteral stone is seen. Bilateral cortical and renal sinus cysts measure up to 1.8 cm. Abdominal vasculature: There is advanced atherosclerotic calcification and mild ectasia of the abdominal aorta. Bowel: There is mild to moderate clonic fecal retention. No bowel obstruction is seen. A small bowel loops contained within a right inguinal hernia. The appendix is not visualized. Peritoneum: There is no intraperitoneal free air or abdominal ascites. Lymphadenopathy: None. Pelvic viscera: The prostate gland is enlarged and heterogeneous. The bladder wall appears thickened/trabeculated indicating chronic outlet obstruction. A right large left inguinal hernias. The right inguinal hernia contains a segment of bowel. Skeletal structures: The skeletal structures are osteopenic. There is moderate lumbosacral spondylosis. No lytic or blastic lesions are seen. IMPRESSION: 1. No acute infectious or inflammatory findings are identified in the abdomen or pelvis. 2. Cardiomegaly and emphysema. 3. Right-sided nephrolithiasis. 4. There are right larger than left inguinal hernias. The right inguinal hernia contains a nonobstructed segment of small bowel. 5. The liver is enlarged and steatotic. 6. Additional findings as above. ACT 112: Negative or not required by law. Electronically signed by: Matt Landaverde M.D. 04/24/2025 2:22 PM Head CTA 04/24/25 14:47 CT angio head wo/w CLINICAL HISTORY: ataxia with ambulation COMPARISON STUDY: No previous studies for comparison. TECHNIQUE: Unenhanced and arterial phase imaging of the head was performed. Intravenous injection of 115 cc of Optiray 320 IV was uneventful. Sagittal and coronal reformats were viewed as well as maximal intensity projections on an independent 3-D workstation. A dose lowering technique was utilized adhering to the principles of ALARA. FINDINGS: This exam is mildly compromised by motion artifact. Intravascular contrast from recent contrast-enhanced CT of the abdomen and pelvis is present. No acute intracranial hemorrhage, midline shift or mass effect is present. Ventricular system is unremarkable. White matter hypodensities suggest small vessel disease. There is extensive calcified atherosclerotic plaque within the bilateral cavernous carotids which results in moderate stenosis of the cavernous carotids. There are are moderate to severe multifocal stenoses within the right middle cerebral artery. There is moderate stenosis of the intracranial portion of left vertebral artery as well as the basilar artery. Posterior cerebral arteries are patent. No large vessel occlusion is identified. There is no intracranial aneurysm. IMPRESSION: 1. No acute intracranial findings. Mild motion artifact. 2. No large vessel occlusion. No intracranial aneurysm. 3. 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 ACT 112: Negative or not required by law. Electronically signed by: Pepito Taylor M.D. 04/24/2025 3:48 PM Neck CTA 04/24/25 14:47 CT ANGIOGRAM OF THE NECK CLINICAL HISTORY: Ataxia. COMPARISON STUDY: No priors TECHNIQUE: Following the IV administration of 115 of Optiray 320, CT angiogram of the neck was performed from the aortic arch to the skull base. Images are reviewed in the axial, sagittal, and coronal planes. 3-D MIPS images are created and assessed. IV contrast was administered without complication. All measurements were calculated based on NASCET criteria. A dose lowering technique was utilized adhering to the principles of ALARA. FINDINGS: Thoracic aorta: There is atherosclerotic calcification of the thoracic aorta. Visualized portions of the thoracic aorta are normal in caliber. The aortic arch demonstrates standard 3-vessel anatomy. Right carotid arterial system: The right common carotid artery is widely patent noting atherosclerotic plaque and irregularity. There is advanced atherosclerotic plaque in the carotid bulb. This causes high-grade focal stenosis with near complete occlusion/trace flow at the origin of the right internal carotid artery. The mid to distal portion of the vessel are patent, as is the right external carotid artery. Left carotid arterial system: The left common carotid artery is widely patent noting atherosclerotic plaque and irregularity. There is advanced atherosclerotic plaque in the carotid bulb. This causes 50-60% focal stenosis of the origin of the left internal carotid artery. The mid to distal portions of the left internal carotid artery are widely patent, as is the left external carotid artery. Vertebral arteries: The vertebral arteries are patent in the neck bilaterally and codominant. Subclavian arteries: Widely patent bilaterally. Intracranial vasculature: The visualized intracranial vessels at the skull base are patent. There is moderate focal stenosis of the left vertebral artery seen on axial image #340. See report of CT angiogram of the brain performed concurrently for detailed intracranial findings. Jugular veins: Patent bilaterally. Brain parenchyma: The visualized brain parenchyma the skull base is within normal limits. Lung apices: There is moderate emphysema. A 9 mm pulmonary nodule is seen in the right upper lobe on image #1. Airspace consolidation is suggested in the left midlung on the die maintenance technician tomogram. Soft tissues: The visualized pharyngeal soft tissues are normal in appearance noting angiographic phase technique. The oropharyngeal airway appears widely patent. The salivary and thyroid glands are normal in appearance. No cervical lymphadenopathy is seen. Skeletal structures: The skeletal structures are osteopenic. The visualized calvarium at the skull base appears intact. The imaged cervical spine is maintained noting multilevel spondylosis. Sinuses and mastoids: There is trace mucosal thickening in the right maxillary antrum. The left sphenoid sinus is completely opacified. The mastoid air cells are well pneumatized IMPRESSION: 1. Advanced atherosclerotic plaque with high-grade/critical stenosis at the origin of the right internal carotid artery. There is only trace flow. The vessel is patent distally. 2. There is 50-69% focal stenosis at the origin of the left internal carotid artery. 3. The vertebral arteries are patent in the neck bilaterally and codominant. 4. There is moderate focal stenosis of the left vertebral artery at the skull base. 5. Emphysema. 6. There is a 9 mm right upper lobe pulmonary nodule. A nonemergent chest CT is recommended for further assessment and full evaluation of the thorax. 7. Airspace consolidation is suggested in the left midlung on the die maintenance technician tomogram. Correlate with a chest x-ray. 8. Additional findings as above. ACT 112: Positive. There are findings on this exam that require communication between the performing entity and the patient following Patient Test Result Information Act ([place] Act 112) guidelines. Electronically signed by: Matt Landaverde M.D. 04/24/2025 3:42 PM Chest X-Ray 04/24/25 15:47 Chest radiograph, one view History: Weakness Comparison: None Findings/impression: Single AP view of the chest performed. Some underlying, likely chronic thin curvilinear opacity which may represent fibrotic change or emphysema appears to be present. There is additionally an area of consolidation in the periphery of the mid left lung which is suspicious for infection. The cardiomediastinal silhouette and pulmonary vascularity are within normal limits. No pneumothorax. No acute bony abnormalities. Electronically signed by Mike Slade 04-24-2025 4:14 PM Diagnostic Findings Laboratory Results WBC 8.02 K/ul (4.8-10.8) 04/24/25 11: RBC 4.63 M/uL (4.70-6.10) L 04/24/25 11: Hgb 15.4 g/dl (14.0-18.0) 04/24/25 11: Hct 44.2 % (42.0-52.0) 04/24/25 11: MCV 95.5 fL (80.0-100.0) 04/24/25 11: MCH 33.3 pg (25.0-34.0) 04/24/25 11: MCHC 34.8 g/dL (32.0-36.0) 04/24/25 11: RDW Std Deviation 42.6 fL (36.4-46.3) 04/24/25 11: RDW Coeff of Drake 12.5 % (11.5-14.5) 04/24/25 11: Plt Count 135 K/uL (130-400) 04/24/25 11: MPV 10.4 fL (9.4-12.4) 04/24/25 11: Immature Gran % (Auto) 0.4 % 04/24/25 11: Neut % (Auto) 83.4 % 04/24/25 11: Lymph % (Auto) 6.5 % 04/24/25 11: [place] % (Auto) 9.6 % 04/24/25 11: Eos % (Auto) 0.0 % 04/24/25 11:29 Baso % (Auto) 0.1 % 04/24/25 11: Neut # (Auto) 6.69 K/uL (1.40-6.50) H 04/24/25 11: Lymph # (Auto) 0.52 K/uL (1.20-3.40) L 04/24/25 11: [place]itt # (Auto) 0.77 K/uL (0.11-0.59) H 04/24/25 11: Eos # (Auto) 0.00 K/uL (0.00-0.50) 04/24/25 11: Baso # (Auto) 0.01 K/uL (0.00-0.20) 04/24/25 11: Immature Gran # (Auto) 0.03 K/uL (0.01-0.20) 04/24/25 11: PT 11.2 Seconds (9.0-12.0) 04/24/25 11: INR 1.0 (0.9-1.1) 04/24/25 11: Sodium 128 mmol/L (136-145) L 04/24/25 11: Potassium 4.5 mmol/L (3.5-5.1) 04/24/25 11: Chloride 95 mmol/L (98-107) L 04/24/25 11: Carbon Dioxide 25 mmol/L (21-32) 04/24/25 11: Anion Gap 8 (3-11) 04/24/25 11: BUN 15 mg/dl (6-23) 04/24/25 11: Creatinine 1.29 mg/dl (0.6-1.4) 04/24/25 11:29 Est Cr Clr Drug Dosing 65.1 ml/min 04/24/25 11:29 eGFR 57.11 04/24/25 11:29 BUN/Creatinine Ratio 11.6 (10-20) 04/24/25 11: Glucose 189 mg/dl (70-99(Fasting)) H 04/24/25 11:29 Calcium 9.9 mg/dl (8.6-10.3) 04/24/25 11:29 Total Bilirubin 1.3 mg/dl (0.2-1.0) H 04/24/25 11:29 AST 25 U/L (13-39) 04/24/25 11:29 ALT 23 U/L (7-52) 04/24/25 11:29 Alkaline Phosphatase 39 U/L (34-104) 04/24/25 11: Troponin I High Sens 5.6 pg/ml (0-20) 04/24/25 11:29 Total Protein 7.6 gm/dl (6.0-8.3) 04/24/25 11:29 Albumin 4.8 gm/dl (3.4-5.0) 04/24/25 11:29 Globulin 2.8 gm/dl (2.5-4.0) 04/24/25 11: Albumin/Globulin Ratio 1.7 (0.9-2) 04/24/25 11:29 Urine Color Yellow 04/24/25 15:53 Urine Appearance Clear (Clear) 04/24/25 15:53 Urine pH 8.0 (4.5-7.5) H 04/24/25 15:53 Ur Specific [place] > 1.045 (1.000-1.030) H 04/24/25 15:53 Urine Protein Trace (Negative) H 04/24/25 15:53 Urine Glucose (UA) Negative (Negative) 04/24/25 15:53 Urine Ketones Negative (Negative) 04/24/25 15:53 Urine Blood Negative (Negative) 04/24/25 15:53 Urine Nitrite Negative (Negative) 04/24/25 15:53 Urine Bilirubin Negative (Negative) 04/24/25 15:53 Urine Urobilinogen Negative (Negative) 04/24/25 15:53 Ur Leukocyte Esterase 1+ (Negative) H 04/24/25 15:53 Urine WBC (Auto) 11-20 /hpf (0-5) H 04/24/25 15:53 Urine RBC (Auto) 0-2 /hpf (0-2) 04/24/25 15:53 U Hyaline Cast (Auto) 0-2 /lpf (0-2) 04/24/25 15:53 U Epithel Cells (Auto) 0-2 /hpf (0-2) 04/24/25 15:53 Urine Bacteria (Auto) 1+ (None Seen) H 04/24/25 15:53 Urine Comment 04/24/25 15:53 Impressions Abdomen/Pelvis CT 04/24/25 13:39 CT SCAN OF THE ABDOMEN AND PELVIS WITH IV CONTRAST CLINICAL HISTORY: Generalized abdominal pain. COMPARISON STUDY: No priors TECHNIQUE: Following the IV administration of 91 cc of Optiray 320, CT scan of the abdomen and pelvis is performed from the lung bases to the proximal femora. Images are reviewed in the axial, sagittal, and coronal planes. IV contrast was administered without complication. A dose lowering technique was utilized adhering to the principles of ALARA. The examination is degraded by motion artifact. CT DOSE: 1643.83 mGy.cm FINDINGS: Lung bases: The heart is enlarged and without pericardial effusion. The coronary arteries are densely calcified. There is a tiny hiatal hernia. Emphysematous change is noted. Scarring/atelectasis is seen at the lung bases. No airspace consolidation or pleural effusion is identified. Liver: The contrast-enhanced liver is enlarged, measuring over 20 cm in craniocaudal length. Attenuation is diffusely diminished indicating severe steatosis. Fatty sparing is seen adjacent to the gallbladder fossa. There is no intrahepatic biliary ductal dilatation. The hepatic veins and portal veins are patent. Gallbladder: Unremarkable. Spleen: Normal in size and attenuation. Pancreas: Unremarkable. Adrenal glands: There is nonspecific thickening of the adrenal glands. Kidneys: The contrast enhanced kidneys are normal in size and without hydronephrosis. The kidneys enhance symmetrically. A 6 mm nonobstructing calculus is seen in the right lower pole. No left renal calculi are identified on this contrast-enhanced examination and no ureteral stone is seen. Bilateral cortical and renal sinus cysts measure up to 1.8 cm. Abdominal vasculature: There is advanced atherosclerotic calcification and mild ectasia of the abdominal aorta. Bowel: There is mild to moderate clonic fecal retention. No bowel obstruction is seen. A small bowel loops contained within a right inguinal hernia. The appendix is not visualized. Peritoneum: There is no intraperitoneal free air or abdominal ascites. Lymphadenopathy: None. Pelvic viscera: The prostate gland is enlarged and heterogeneous. The bladder wall appears thickened/trabeculated indicating chronic outlet obstruction. A right large left inguinal hernias. The right inguinal hernia contains a segment of bowel. Skeletal structures: The skeletal structures are osteopenic. There is moderate lumbosacral spondylosis. No lytic or blastic lesions are seen. IMPRESSION: 1. No acute infectious or inflammatory findings are identified in the abdomen or pelvis. 2. Cardiomegaly and emphysema. 3. Right-sided nephrolithiasis. 4. There are right larger than left inguinal hernias. The right inguinal hernia contains a nonobstructed segment of small bowel. 5. The liver is enlarged and steatotic. 6. Additional findings as above. ACT 112: Negative or not required by law. Electronically signed by: Matt Landaverde M.D. 04/24/2025 2:22 PM Head CTA 04/24/25 14:47 CT angio head wo/w CLINICAL HISTORY: ataxia with ambulation COMPARISON STUDY: No previous studies for comparison. TECHNIQUE: Unenhanced and arterial phase imaging of the head was performed. Intravenous injection of 115 cc of Optiray 320 IV was uneventful. Sagittal and coronal reformats were viewed as well as maximal intensity projections on an in dependent 3-D workstation. A dose lowering technique was utilized adhering to the principles of ALARA. FINDINGS: This exam is mildly compromised by motion artifact. Intravascular contrast from recent contrast-enhanced CT of the abdomen and pelvis is present. No acute intracranial hemorrhage, midline shift or mass effect is present. Ventricular system is unremarkable. White matter hypodensities suggest small vessel disease. There is extensive calcified atherosclerotic plaque within the bilateral cavernous carotids which results in moderate stenosis of the cavernous carotids. There are are moderate to severe multifocal stenoses within the right middle cerebral artery. There is moderate stenosis of the intracranial portion of left vertebral artery as well as the basilar artery. Posterior cerebral arteries are patent. No large vessel occlusion is identified. There is no intracranial aneurysm. IMPRESSION: 1. No acute intracranial findings. Mild motion artifact. 2. No large vessel occlusion. No intracranial aneurysm. 3. 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 ACT 112: Negative or not required by law. Electronically signed by: Pepito Taylor M.D. 04/24/2025 3:48 PM Neck CTA 04/24/25 14:47 CT ANGIOGRAM OF THE NECK CLINICAL HISTORY: Ataxia. COMPARISON STUDY: No priors TECHNIQUE: Following the IV administration of 115 of Optiray 320, CT angiogram of the neck was performed from the aortic arch to the skull base. Images are reviewed in the axial, sagittal, and coronal planes. 3-D MIPS images are created and assessed. IV contrast was administered without complication. All measurements were calculated based on NASCET criteria. A dose lowering technique was utilized adhering to the principles of ALARA. FINDINGS: Thoracic aorta: There is atherosclerotic calcification of the thoracic aorta. Visualized portions of the thoracic aorta are normal in caliber. The aortic arch demonstrates standard 3-vessel anatomy. Right carotid arterial system: The right common carotid artery is widely patent noting atherosclerotic plaque and irregularity. There is advanced atheros clerotic plaque in the carotid bulb. This causes high-grade focal stenosis with near complete occlusion/trace flow at the origin of the right internal carotid artery. The mid to distal portion of the vessel are patent, as is the right external carotid artery. Left carotid arterial system: The left common carotid artery is widely patent noting atherosclerotic plaque and irregularity. There is advanced atherosclerotic plaque in the carotid bulb. This causes 50-60% focal stenosis of the origin of the left internal carotid artery. The mid to distal portions of the left internal carotid artery are widely patent, as is the left external carotid artery. Vertebral arteries: The vertebral arteries are patent in the neck bilaterally and codominant. Subclavian arteries: Widely patent bilaterally. Intracranial vasculature: The visualized intracranial vessels at the skull base are patent. There is moderate focal stenosis of the left vertebral artery seen on axial image #340. See report of CT angiogram of the brain performed concurrently for detailed intracranial findings. Jugular veins: Patent bilaterally. Brain parenchyma: The visualized brain parenchyma the skull base is within no rmal limits. Lung apices: There is moderate emphysema. A 9 mm pulmonary nodule is seen in the right upper lobe on image #1. Airspace consolidation is suggested in the left midlung on the die maintenance technician tomogram. Soft tissues: The visualized pharyngeal soft tissues are normal in appearance noting angiographic phase technique. The oropharyngeal airway appears widely patent. The salivary and thyroid glands are normal in appearance. No cervical lymphadenopathy is seen. Skeletal structures: The skeletal structures are osteopenic. The visualized calvarium at the skull base appears intact. The imaged cervical spine is maintained noting multilevel spondylosis. Sinuses and mastoids: There is trace mucosal thickening in the right maxillary antrum. The left sphenoid sinus is completely opacified. The mastoid air cells are well pneumatized IMPRESSION: 1. Advanced atherosclerotic plaque with high-grade/critical stenosis at the origin of the right internal carotid artery. There is only trace flow. The vessel is patent distally. 2. There is 50-69% focal stenosis at the origin of the left internal carotid artery. 3. The vertebral arteries are patent in the neck bilaterally and codominant. 4. There is moderate focal stenosis of the left vertebral artery at the skull base. 5. Emphysema. 6. There is a 9 mm right upper lobe pulmonary nodule. A nonemergent chest CT is recommended for further assessment and full evaluation of the thorax. 7. Airspace consolidation is suggested in the left midlung on the die maintenance technician tomogram. Correlate with a chest x-ray. 8. Additional findings as above. ACT 112: Positive. There are findings on this exam that require communication between the performing entity and the patient following Patient Test Result Information Act ([place] Act 112) guidelines. Electronically signed by: Matt Landaverde M.D. 04/24/2025 3:42 PM Chest X-Ray 04/24/25 15:47 Chest radiograph, one view History: Weakness Comparison: None Findings/impression: Single AP view of the chest performed. Some underlying, likely chronic thin curvilinear opacity which may represent fibrotic change or emphysema appears to be present. There is additionally an area of consolidation in the periphery of the mid left lung which is suspicious for infection. The cardiomediastinal silhouette and pulmonary vascularity are within normal limits. No pneumothorax. No acute bony abnormalities. Electronically signed by Mike Slade 04-24-2025 4:14 PM Supervising Physician Co-Signing Physician Notes Attending Addendum: Case reviewed with the advanced practitioner. I have personally performed a history and physical examination on the patient. I have reviewed the advanced practitioner's documentation on the date of service referenced in note, and I agree with, and take responsibility for the plan of care. please refer to her notes for full details patient seen and examined, records reviewed by myself as well on exam, patient seen resting in bed, not in distress reports generalized weakness for 1 week, after starting Rinvoq reports fever/chills , dysuria, lower abdominal pain, foul smelling urine x few days productive cough since this morning, no shortness of breath denies sore throat no other symptoms VS noted and reviewed oriented x 3, not in distress, speaks in sentences with no effort nor accessory muscle use normal rate, regular rhythm, no murmurs clear breath sounds bilaterally non distended, soft, nontender mild lower extremity edema, no erythema, warmth no neuro deficits all labs, imaging noted and reviewed ASSESSMENT AND PLAN> GENERALIZED WEAKNESS likely from Rinvoq from underlying Pneumonia, UTI Brain MRI pending check Lyme screen, TSH, Vit B12 respiratory panel, sputum culture, blood culture, urine culture empiric Cefepime + Doxycyline patient's Paint Spray Tender is Dr. Smooth Escoto- please update re: patient's admission HYPONATREMIA hypovolemic from poor oral intake IV NSS other diagnoses and plan of care as per advanced practitioner's notes I spent a total of 40 minutes coordinating, documenting, and providing care for this patient, excluding time spent in the performance of separately billed services or time spent by another provider/QHP. Bry Dorman MD
[2025-04-24] MEDS ORDERED: ACETAMINOPHEN 325 MG TAB PO PRN (17:00)
[2025-04-24] MEDS ORDERED: cefTRIAXone SODIUM 2,000 MG/50 ML BAG IV SCH (17:15)
[2025-04-24] MEDS ORDERED: DEXTROSE 50% 50 ML SYRINGE IV PRN (17:16)
[2025-04-24] MEDS ORDERED: CARBOHYDRATES FOR HYPOGLYCEMIA PO PRN (17:16)
[2025-04-24] MEDS ORDERED: GLUCAGON FOR INJ 1 MG VIAL SQ PRN (17:16)
[2025-04-24] MEDS ORDERED: GLUCOSE 10 TAB/TUBE PO PRN (17:16)
[2025-04-24] MEDS ORDERED: GLUCOSE 40% GEL 15 GM TUBE PO PRN (17:16)
[2025-04-24] MEDS: CEFEPIME 2000MG 2,000 MG/20 ML SYR IV SCH (17:28)
[2025-04-24 18:00] LABS: Procalcitonin 0.22 ng/ml (0-0.5)
[2025-04-24 18:06] LABS: Thyroid Stimulating Hormone 2.469 uIu/ml (0.300-4.500)
[2025-04-24 18:20] LABS: Chlamydia pneumoniae PCR Not Detected (NotDetected); Coronavirus 229E PCR Not Detected (NotDetected); Coronavirus CoV-2 (COVID19)PCR Not Detected (NotDetected); Coronavirus HKU1 PCR Not Detected (NotDetected); Coronavirus NL63 PCR Not Detected (NotDetected); Coronavirus OC43PCR Not Detected (NotDetected); Human Metapneumovirus PCR Not Detected (NotDetected); Parainfluenza Virus 1 PCR Not Detected (NotDetected); Parainfluenza Virus 2 PCR Not Detected (NotDetected); Parainfluenza Virus 3 PCR Not Detected (NotDetected); Parainfluenza Virus 4 PCR Not Detected (NotDetected); Respiratory Syncytial VirusPCR Not Detected (NotDetected); Rhinovirus/Enterovirus PCR Not Detected (NotDetected)
[2025-04-24 18:25] LABS: Lyme Screen Rflx Confirmation Negative (Negative)
--- NOTE | 2025-04-24 18:38 | Ultrasound Report ---
Examination: Doppler venous ultrasound of the lower extremity Comparison: None Technique: Grayscale evaluation with compression, spectral flow, and color Doppler assessment of the deep venous system of the leg, from the groin to the knee, as well as the lower leg Findings: The external iliac, common femoral, femoral, popliteal, peroneal and anterior and posterior tibial veins demonstrate normal compressibility and blood flow. Impression: No evidence for DVT of the bilateral lower extremity Electronically signed by Mike Slade 04-24-2025 6:37 PM
--- NOTE | 2025-04-24 18:42 | Electrocardiogram Report ---
Test Reason : Blood Pressure : */* mmHG Vent. Rate : 107 BPM Atrial Rate : 107 BPM P-R Int : 214 ms QRS Dur : 100 ms QT Int : 318 ms P-R-T Axes : -19 -11 -17 degrees QTcB Int : 424 ms Sinus tachycardia with 1st degree A-V block Abnormal ECG Confirmed by Mike Chacon ([id number]) on 04/24/2025 6:42:00 PM Referred By: REFERRED SELF Confirmed By: Mike Chacon
[2025-04-24] MEDS: INSULIN ASPART PER UNIT CHARGE SC SCH (18:50)
[2025-04-24] MEDS: LACTATED RINGER'S 1,000 ML IV SCH (19:19)
[2025-04-24] MEDS: GADOBUTROL 65ML VIAL IV ONE (19:49)
[2025-04-24] MEDS: SODIUM CHLORIDE 0.9% 1,000 ML IV SCH (20:24)
--- NOTE | 2025-04-24 20:25 | Magnetic Resonance Report ---
Exam(s): MRI HEAD W/WO Contrast EXAM: MR Head Without and With Intravenous Contrast CLINICAL HISTORY: Reason for exam: severe weakness. TECHNIQUE: Magnetic resonance images of the head/brain without and with intravenous contrast in multiple planes. COMPARISON: Same-day CTA FINDINGS: Brain: No diffusion restriction to suggest acute cerebral ischemia. No evidence of acute intracranial hemorrhage. No mass effect or midline shift. Proximal intracranial flow voids appear normal. Generalized parenchymal volume loss. 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 Periventricular and deep cerebral white matter foci of T2/FLAIR signal hyperintensity in keeping with chronic small-vessel ischemic change. Following contrast administration, no evidence of intracranial mass or abnormal enhancement. Ventricles: Unremarkable. No hydrocephalus. Bones/joints: Unremarkable. No acute fracture. Sinuses: Retention cyst posterior left ethmoid. Paranasal sinuses appear otherwise clear. Mastoid air cells: Unremarkable as visualized. No mastoid effusion. Orbits: Unremarkable as visualized. IMPRESSION: No diffusion restriction to suggest acute cerebral ischemia. No evidence of acute intracranial hemorrhage. Electronically signed by: Hans Zamora M.D. 04/24/25 20:25 PM
[2025-04-24] MEDS ORDERED: INSULIN ASPART PER UNIT CHARGE SC SCH (21:00)
[2025-04-24] MEDS: LANTUS PER UNIT CHARGE SQ SCH (21:34)
[2025-04-24] MEDS: DOXYCYCLINE HYCLATE 100 MG CAP PO SCH (21:36)
[2025-04-25 06:44] LABS: Hematocrit (blood only) 40.4 % (42.0-52.0); Hemoglobin 13.9 g/dl (14.0-18.0); Immature Granulocytes # (auto) 0.03 K/uL (0.01-0.20); Immature Granulocytes % (auto) 0.5 %; Mean Corpuscular Hemoglobin 33.4 pg (25.0-34.0); Mean Corpuscular Volume 97.1 fL (80.0-100.0); Platelet Count 121 K/uL (130-400); RDW Standard Deviation 44.8 fL (36.4-46.3); Red Blood Count 4.16 M/uL (4.70-6.10); White Blood Count 5.78 K/ul (4.8-10.8)
[2025-04-25 06:59] LABS: Alanine Aminotransferase 21.0 U/L (7-52); Albumin Globulin Ratio 1.6 (0.9-2); Alkaline Phosphatase 36.0 U/L (34-104); Anion Gap 7.0 (3-11); Bilirubin,Total 1.1 mg/dl (0.2-1.0); Blood Urea Nitrogen 16.0 mg/dl (6-23); Calcium 9.2 mg/dl (8.6-10.3); Carbon Dioxide 27.0 mmol/L (21-32); Chloride 97.0 mmol/L (98-107); Creatinine Clr Calc Pharmacy 64.6 ml/min; Globulin 2.7 gm/dl (2.5-4.0); Glucose 144.0 mg/dl (70-99(Fasting)); Potassium 4.0 mmol/L (3.5-5.1); Sodium 131.0 mmol/L (136-145); Total Protein 7.0 gm/dl (6.0-8.3)
[2025-04-25] MEDS: CHOLECALCIFEROL 25 MCG (1000 UNITS) TAB PO SCH (07:52)
[2025-04-25] MEDS: EZETIMIBE 10 MG TAB PO SCH (07:52)
[2025-04-25] MEDS: MAGNESIUM OXIDE 400 MG TAB PO SCH (07:52)
[2025-04-25] MEDS: FENOFIBRATE NANOCRYSTALLIZED 145 MG TABLET PO SCH (07:52)
[2025-04-25] MEDS: ENOXAPARIN INJ 40 MG/0.4 ML SYR SQ SCH (07:52)
[2025-04-25] MEDS: LOSARTAN POTASSIUM 25 MG TAB PO SCH (07:52)
[2025-04-25] MEDS: LOVAZA 1 GM PO SCH (10:57)
--- NOTE | 2025-04-25 12:20 | Neurology Consultation ---
Date of Consultation April 25, 2025 Assessment & Plan (1) Weakness: Suspect weakness related to ongoing infection Agree with continued antimicrobial treatment Continue to monitor foe/s/ of worsening infection Recommend echocardiogram as part of complete workup Continue frequent neurological assessments Obtain stat CT brain without contrast for any acute neurological decline Continue to monitor/control blood pressure & blood glucose Continue to monitor telemetry closely Continue to monitor renal and hepatic function, keep euvolemic Metabolic workup should include hgbA1c, fasting lipids Ok from neurology perspective for VTE prophylaxis PT/OT/SLT to eval and treat (2) Carotid stenosis, left: Recommend vascular surgery consultation or ambulatory referral Recommend DAPT for 21 days then daily ASA as monotherapy Telehealth Consultation Telehealth Information Telehealth Information: I performed this visit using a real-time telehealth connection between my location and the patients location ([facility]). After connecting through interactive tele-video, patient was identified by name and date of and/or wristband check.Patient (or authorized healthcare food service sales representatives) was informed that this was a telemedicine visit and it was being conducted confidentially over secure lines. My office door was closed and no one else was present in the room with me.Patient (or authorized healthcare food service sales representatives) provided consent to proceed with the visit, expressed an understanding of privacy and security of the telemedicine visit, and gave permission to have a hospital food service sales representatives in the room in order to assist with the visit and to conduct portions of the visit, as needed. I informed the patient (or authorized healthcare food service sales representatives) that I reviewed their record and presented the opportunity for them to ask any questions regarding the visit today. The patient agreed to participate. History of Present Illness Reason for Consultation: Weakness Requesting Physician: Dr Arizmendi Attending Physician: Denise Arizmendi MD History of Present Illness 75yo male with hx of RA, HTN, hyperlipidemia and DM presented with several days of worsening generalized weakness nausea and decreased appetite. He has reportedly begun medication Rinvoq appro 7 days ago. He complained of cough as well and per documentation review, Xray imaging review he has suspected community acquired pneumonia and has been started on antimicrobial treatment. There is also concern of UTI. He has undergone CTA head & neck revealing no over t evidence of LVO or significant/flow limiting stenosis noting left ICA stenosis. He has undergone MRI brain revealing no overt evidence of acute ischemic stroke and/or acute intracranial pathology. I have performed televideo consultation. He is alert & oriented; able to answer all questions appropriately, name objects on televideo monitor, repeat phrases and perform complex/embedded commands without deficit. Neurological exam is non lateralizing/nonfocal in terms of motor strength and coordination. Allergies Allergy/AdvReac Type Severity Reaction Status Date / Time hydrocodone [From Vicodin] Allergy Severe itchy Verified 04/24/25 17:06 atorvastatin Allergy Intermediate muscle Verified 04/24/25 17:06 pains simvastatin [From Zocor] AdvReac Intermediate muscle Verified 04/24/25 17:06 pains niacin AdvReac Unknown flushing Verified 04/24/25 17:06 with burning and itching Home Medications Medication Instructions Recorded Confirmed Type magnesium oxide 400 mg (241.3 mg 400 mg PO DAILY #30 tabs 06/13/19 04/24/25 History magnesium) tablet cholecalciferol (vitamin D3) 25 1,000 units PO DAILY 12/16/19 04/24/25 History mcg (1,000 unit) capsule losartan 25 mg tablet 25 mg PO DAILY #90 tabs 06/16/20 04/24/25 Rx omega-3 acid ethyl esters 1 gram 1 cap PO DAILY #90 caps 11/04/20 04/24/25 Rx capsule (Lovaza) ezetimibe 10 mg tablet (Zetia) 10 mg PO DAILY #90 tabs 11/18/20 04/24/25 Rx fenofibrate 160 mg tablet 160 mg PO DAILY #90 tabs 03/09/21 04/24/25 Rx metformin 500 mg tablet,extended 1,000 mg PO QAM 04/24/25 04/24/25 History release 24 hr metformin 500 mg tablet,extended 500 mg PO HS 04/24/25 04/24/25 History release 24 hr omeprazole magnesium 20 mg 20 mg PO DAILY 04/24/25 04/24/25 History tablet,delayed release (Prilosec OTC) ondansetron HCl 4 mg tablet 4 mg PO Q8H PRN nausea and 04/24/25 04/24/25 Rx vomiting 5 days #14 tabs vardenafil 20 mg tablet 20 mg PO UD PRN Sexual Activity 04/24/25 04/24/25 History Patient History Medical History (Updated 04/25/25 @ 12:40 by Eleazar Seymour DO) Osteoarthritis Chronic kidney disease stage 3 Diabetes mellitus, type 2 NIDDM Hyperlipidemia Surgical History History of umbilical hernia repair History of colonoscopy Hx of tonsillectomy H/O adenoidectomy H/O vasectomy Family History Father Prostate cancer Urinary bladder cancer Unknown Diabetes Mother Breast cancer Other No family history of adverse response to anesthesia Denies family history of Colon cancer Ovarian cancer Myocardial infarction Social History Smoking Status: Former smoker Tobacco Type: Cigarettes Second Hand Exposure: Yes (hx as a child); Do You Dip or Chew Tobacco: No; Hx Alcohol Use: Yes Alcohol type: beer Alcohol Intake Frequency Comment: 1-2/ week Hx Substance Use: No Preferred Language: Sinhala Communication Ability: Effective Visual Impairment: No Limitations Hearing Ability: Normal Gift Packer Required: No Beliefs That Will Affect Care: None marital status: Current Living Situation: Spouse current occupational status: retired Feels Safe at Home: Yes Childhood Exposure to Second-Hand Smoke: Yes Dental Care, Regularly: Yes Physical Activity Frequency: 5-6 Times per Week Seatbelt Use: always Sunscreen Use: Yes Do you think of yourself as: straight/heterosexual Assistive Devices: Cane and Walker Physical Exam Neurological Examination: Mental Status: Awake and alert. Oriented to person, place, and time. Fluency naming repetition and comprehension appear grossly intact. Affect remains appropriate. CN testing: I: Denies changes in ability to smell II:Reports no changes in visual acuity III/IV/: No evidence of gaze preference, hippus, nystagmus or roving eye movements V: Facial sensation reportedly grossly intact to light touch bilaterally VII: Facial movements appear without evidence of asymmetry VIII: Hearing appears grossly intact to loud voice bilaterally IX/X: Palate is unable to be accurately assessed via telemedicine XI: Shoulder shrug appears symmetric/ grossly intact bilaterally XII: Tongue protrudes midline without evidence of biting Motor exam: Strength appears grossly intact/symmetric in all extremities Sensory: Sensation is reportedly grossly intact throughout Coordination: No apparent evidence of dysmetria or dysdiadochokinesia Reflexes: Deferred Gait: Deferred Results & Data Vital Signs (Past 12 Hours) Vital Signs Temp Pulse Resp BP Pulse Ox O2 Del Method 04/25/25 08:07 Room Air 04/25/25 07:39 36.9 C 95 H 18 145/82 H 95 Room Air Laboratory Results Abnormal lab results 04/24/25 04/24/25 04/24/25 Range/Units 15:53 18:32 21:26 RBC (4.70-6.10) M/uL Hgb (14.0-18.0) g/dl Hct (42.0-52.0) % Plt Count (130-400) K/uL Lymph # (Auto) (1.20-3.40) K/uL Rhea # (Auto) (0.11-0.59) K/uL Sodium (136-145) mmol/L Chloride (98-107) mmol/L Glucose (70-99(Fasting)) mg/dl POC Glucose 126 H 162 H (70-99) mg/dl Total Bilirubin (0.2-1.0) mg/dl Urine pH 8.0 H (4.5-7.5) Ur Specific [place] > 1.045 H (1.000-1.030) Urine Protein Trace H (Negative) Ur Leukocyte Esterase 1+ H (Negative) Urine WBC (Auto) 11-20 H (0-5) /hpf Urine Bacteria (Auto) 1+ H (None Seen) 04/25/25 04/25/25 04/25/25 Range/Units 06:22 07:41 11:27 RBC 4.16 L (4.70-6.10) M/uL Hgb 13.9 L (14.0-18.0) g/dl Hct 40.4 L (42.0-52.0) % Plt Count 121 L (130-400) K/uL Lymph # (Auto) 0.61 L (1.20-3.40) K/uL Rhea # (Auto) 0.67 H (0.11-0.59) K/uL Sodium 131 L (136-145) mmol/L Chloride 97 L (98-107) mmol/L Glucose 144 H (70-99(Fasting)) mg/dl POC Glucose 143 H 218 H (70-99) mg/dl Total Bilirubin 1.1 H (0.2-1.0) mg/dl Urine pH (4.5-7.5) Ur Specific [place] (1.000-1.030) Urine Protein (Negative) Ur Leukocyte Esterase (Negative) Urine WBC (Auto) (0-5) /hpf Urine Bacteria (Auto) (None Seen) Diagnostic Findings Abdomen/Pelvis CT 04/24/25 13:39 CT SCAN OF THE ABDOMEN AND PELVIS WITH IV CONTRAST CLINICAL HISTORY: Generalized abdominal pain. COMPARISON STUDY: No priors TECHNIQUE: Following the IV administration of 91 cc of Optiray 320, CT scan of the abdomen and pelvis is performed from the lung bases to the proximal femora. Images are reviewed in the axial, sagittal, and coronal planes. IV contrast was administered without complication. A dose lowering technique was utilized adhering to the principles of ALARA. The examination is degraded by motion artifact. CT DOSE: 1643.83 mGy.cm FINDINGS: Lung bases: The heart is enlarged and without pericardial effusion. The coronary arteries are densely calcified. There is a tiny hiatal hernia. Emphysematous change is noted. Scarring/atelectasis is seen at the lung bases. No airspace consolidation or pleural effusion is identified. Liver: The contrast-enhanced liver is enlarged, measuring over 20 cm in craniocaudal length. Attenuation is diffusely diminished indicating severe steatosis. Fatty sparing is seen adjacent to the gallbladder fossa. There is no intrahepatic biliary ductal dilatation. The hepatic veins and portal veins are patent. Gallbladder: Unremarkable. Spleen: Normal in size and attenuation. Pancreas: Unremarkable. Adrenal glands: There is nonspecific thickening of the adrenal glands. Kidneys: The contrast enhanced kidneys are normal in size and without hydronephrosis. The kidneys enhance symmetrically. A 6 mm nonobstructing calculus is seen in the right lower pole. No left renal calculi are identified on this contrast-enhanced examination and no ureteral stone is seen. Bilateral cortical and renal sinus cysts measure up to 1.8 cm. Abdominal vasculature: There is advanced atherosclerotic calcification and mild ectasia of the abdominal aorta. Bowel: There is mild to moderate clonic fecal retention. No bowel obstruction is seen. A small bowel loops contained within a right inguinal hernia. The appendix is not visualized. Peritoneum: There is no intraperitoneal free air or abdominal ascites. Lymphadenopathy: None. Pelvic viscera: The prostate gland is enlarged and heterogeneous. The bladder wall appears thickened/trabeculated indicating chronic outlet obstruction. A right large left inguinal hernias. The right inguinal hernia contains a segment of bowel. Skeletal structures: The skeletal structures are osteopenic. There is moderate lumbosacral spondylosis. No lytic or blastic lesions are seen. IMPRESSION: 1. No acute infectious or inflammatory findings are identified in the abdomen or pelvis. 2. Cardiomegaly and emphysema. 3. Right-sided nephrolithiasis. 4. There are right larger than left inguinal hernias. The right inguinal hernia contains a nonobstructed segment of small bowel. 5. The liver is enlarged and steatotic. 6. Additional findings as above. ACT 112: Negative or not required by law. Electronically signed by: Matt Landaverde M.D. 04/24/2025 2:22 PM Head CTA 04/24/25 14:47 CT angio head wo/w CLINICAL HISTORY: ataxia with ambulation COMPARISON STUDY: No previous studies for comparison. TECHNIQUE: Unenhanced and arterial phase imaging of the head was performed. Intravenous injection of 115 cc of Optiray 320 IV was uneventful. Sagittal and coronal reformats were viewed as well as maximal intensity projections on an independent 3-D workstation. A dose lowering technique was utilized adhering to the principles of ALARA. FINDINGS: This exam is mildly compromised by motion artifact. Intravascular contrast from recent contrast-enhanced CT of the abdomen and pelvis is present. No acute intracranial hemorrhage, midline shift or mass effect is present. Ventricular system is unremarkable. White matter hypodensities suggest small vessel disease. There is extensive calcified atherosclerotic plaque within the bilateral cavernous carotids which results in moderate stenosis of the cavernous carotids. There are are moderate to severe multifocal stenoses within the right middle cerebral artery. There is moderate stenosis of the intracranial portion of left vertebral artery as well as the basilar artery. Posterior cerebral arteries are patent. No large vessel occlusion is identified. There is no intracranial aneurysm. IMPRESSION: 1. No acute intracranial findings. Mild motion artifact. 2. No large vessel occlusion. No intracranial aneurysm. 3. 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 ACT 112: Negative or not required by law. Electronically signed by: Pepito Taylor M.D. 04/24/2025 3:48 PM Neck CTA 04/24/25 14:47 CT ANGIOGRAM OF THE NECK CLINICAL HISTORY: Ataxia. COMPARISON STUDY: No priors TECHNIQUE: Following the IV administration of 115 of Optiray 320, CT angiogram of the neck was performed from the aortic arch to the skull base. Images are reviewed in the axial, sagittal, and coronal planes. 3-D MIPS images are created and assessed. IV contrast was administered without complication. All measurements were calculated based on NASCET criteria. A dose lowering technique was utilized adhering to the principles of ALARA. FINDINGS: Thoracic aorta: There is atherosclerotic calcification of the thoracic aorta. Visualized portions of the thoracic aorta are normal in caliber. The aortic arch demonstrates standard 3-vessel anatomy. Right carotid arterial system: The right common carotid artery is widely patent noting atherosclerotic plaque and irregularity. There is advanced atherosclerotic plaque in the carotid bulb. This causes high-grade focal stenosis with near complete occlusion/trace flow at the origin of the right internal carotid artery. The mid to distal portion of the vessel are patent, as is the right external carotid artery. Left carotid arterial system: The left common carotid artery is widely patent noting atherosclerotic plaque and irregularity. There is advanced atherosclerotic plaque in the carotid bulb. This causes 50-60% focal stenosis of the origin of the left internal carotid artery. The mid to distal portions of the left internal carotid artery are widely patent, as is the left external carotid artery. Vertebral arteries: The vertebral arteries are patent in the neck bilaterally and codominant. Subclavian arteries: Widely patent bilaterally. Intracranial vasculature: The visualized intracranial vessels at the skull base are patent. There is moderate focal stenosis of the left vertebral artery seen on axial image #340. See report of CT angiogram of the brain performed concurrently for detailed intracranial findings. Jugular veins: Patent bilaterally. Brain parenchyma: The visualized brain parenchyma the skull base is within normal limits. Lung apices: There is moderate emphysema. A 9 mm pulmonary nodule is seen in the right upper lobe on image #1. Airspace consolidation is suggested in the left midlung on the hand coremaker tomogram. Soft tissues: The visualized pharyngeal soft tissues are normal in appearance noting angiographic phase technique. The oropharyngeal airway appears widely patent. The salivary and thyroid glands are normal in appearance. No cervical lymphadenopathy is seen. Skeletal structures: The skeletal structures are osteopenic. The visualized calvarium at the skull base appears intact. The imaged cervical spine is maintained noting multilevel spondylosis. Sinuses and mastoids: There is trace mucosal thickening in the right maxillary antrum. The left sphenoid sinus is completely opacified. The mastoid air cells are well pneumatized IMPRESSION: 1. Advanced atherosclerotic plaque with high-grade/critical stenosis at the origin of the right internal carotid artery. There is only trace flow. The vessel is patent distally. 2. There is 50-69% focal stenosis at the origin of the left internal carotid artery. 3. The vertebral arteries are patent in the neck bilaterally and codominant. 4. There is moderate focal stenosis of the left vertebral artery at the skull base. 5. Emphysema. 6. There is a 9 mm right upper lobe pulmonary nodule. A nonemergent chest CT is recommended for further assessment and full evaluation of the thorax. 7. Airspace consolidation is suggested in the left midlung on the hand coremaker tomogram. Correlate with a chest x-ray. 8. Additional findings as above. ACT 112: Positive. There are findings on this exam that require communication between the performing entity and the patient following Patient Test Result Information Act ([place] Act 112) guidelines. Electronically signed by: Matt Landaverde M.D. 04/24/2025 3:42 PM Chest X-Ray 04/24/25 15:47 Chest radiograph, one view History: Weakness Comparison: None Findings/impression: Single AP view of the chest performed. Some underlying, likely chronic thin curvilinear opacity which may represent fibrotic change or emphysema appears to be present. There is additionally an area of consolidation in the periphery of the mid left lung which is suspicious for infection. The cardiomediastinal silhouette and pulmonary vascularity are within normal limits. No pneumothorax. No acute bony abnormalities. Electronically signed by Mike Slade 04-24-2025 4:14 PM Brain MRI 04/24/25 17:00 Exam(s): MRI HEAD W/WO Contrast EXAM: MR Head Without and With Intravenous Contrast CLINICAL HISTORY: Reason for exam: severe weakness. TECHNIQUE: Magnetic resonance images of the head/brain without and with intravenous contrast in multiple planes. COMPARISON: Same-day CTA FINDINGS: Brain: No diffusion restriction to suggest acute cerebral ischemia. No evidence of acute intracranial hemorrhage. No mass effect or midline shift. Proximal intracranial flow voids appear normal. Generalized parenchymal volume loss. 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 Periventricular and deep cerebral white matter foci of T2/FLAIR signal hyperintensity in keeping with chronic small-vessel ischemic change. Following contrast administration, no evidence of intracranial mass or abnormal enhancement. Ventricles: Unremarkable. No hydrocephalus. Bones/joints: Unremarkable. No acute fracture. Sinuses: Retention cyst posterior left ethmoid. Paranasal sinuses appear otherwise clear. Mastoid air cells: Unremarkable as visualized. No mastoid effusion. Orbits: Unremarkable as visualized. IMPRESSION: No diffusion restriction to suggest acute cerebral ischemia. No evidence of acute intracranial hemorrhage. Electronically signed by: Hans Zamora M.D. 04/24/25 20:25 PM Venous Doppler Study 04/24/25 17:28 Examination: Doppler venous ultrasound of the lower extremity Comparison: None Technique: Grayscale evaluation with compression, spectral flow, and color Doppler assessment of the deep venous system of the leg, from the groin to the knee, as well as the lower leg Findings: The external iliac, common femoral, femoral, popliteal, peroneal and anterior and posterior tibial veins demonstrate normal compressibility and blood flow. Impression: No evidence for DVT of the bilateral lower extremity Electronically signed by Mike Slade 04-24-2025 6:37 PM Medications Administered Home Medications Medication Instructions Recorded Confirmed Last Taken magnesium oxide 400 mg (241.3 mg 400 mg PO DAILY #30 tabs 06/13/19 04/24/25 Unknown magnesium) tablet cholecalciferol (vitamin D3) 25 1,000 units PO DAILY 12/16/19 04/24/25 Unknown mcg (1,000 unit) capsule losartan 25 mg tablet 25 mg PO DAILY #90 tabs 06/16/20 04/24/25 Unknown omega-3 acid ethyl esters 1 gram 1 cap PO DAILY #90 caps 11/04/20 04/24/25 Unknown capsule (Lovaza) ezetimibe 10 mg tablet (Zetia) 10 mg PO DAILY #90 tabs 11/18/20 04/24/25 Unknown fenofibrate 160 mg tablet 160 mg PO DAILY #90 tabs 03/09/21 04/24/25 Unknown metformin 500 mg tablet,extended 1,000 mg PO QAM 04/24/25 04/24/25 Unknown release 24 hr metformin 500 mg tablet,extended 500 mg PO HS 04/24/25 04/24/25 04/23/25 release 24 hr omeprazole magnesium 20 mg 20 mg PO DAILY 04/24/25 04/24/25 Unknown tablet,delayed release (Prilosec OTC) ondansetron HCl 4 mg tablet 4 mg PO Q8H PRN nausea and 04/24/25 04/24/25 04/24/25 vomiting 5 days #14 tabs vardenafil 20 mg tablet 20 mg PO UD PRN Sexual Activity 04/24/25 04/24/25 Unknown Active Medications Generic Name Dose Route Start Last Admin Trade Name Kirk PRN Reason Stop Dose Admin Doxycycline Hyclate 100 mg 04/24/25 21:00 04/25/25 07:52 Doxycycline Hyclate 100 Mg Cap PO 04/29/25 20:59 100 mg BID ANSLEY Administration Ezetimibe 10 mg 04/25/25 09:00 04/25/25 07:52 Ezetimibe 10 Mg Tab PO 05/25/25 08:59 10 mg DAILY ANSLEY Administration Enoxaparin Sodium 40 mg 04/25/25 09:00 04/25/25 07:52 Enoxaparin Inj 40 Mg/0.4 Ml Syr SQ 05/25/25 08:59 40 mg QAM ANSLEY Administration Fenofibrate 145 mg 04/25/25 09:00 04/25/25 07:52 Fenofibrate Nanocrystallized 145 Mg Tablet PO 05/25/25 08:59 145 mg DAILY ANSLEY Administration Cefepime HCl 2,000 mg in 20 mls @ 5 mls/min 04/24/25 17:15 04/25/25 08:21 Maxipime 2000mg IV 04/29/25 17:14 5 mls/min Q8H ANSLEY Administration Protocol Sodium Chloride 1,000 mls @ 75 mls/hr 04/24/25 19:15 04/25/25 10:57 Nss IV 04/27/25 19:14 75 mls/hr .[id number] ANSLEY Administration Insulin Aspart 0 units 04/24/25 18:00 04/25/25 08:22 Insulin Aspart Per Unit Charge SC 05/24/25 17:59 6 units ACHS ANSLEY Administration Insulin Glargine 24 units 04/24/25 21:00 04/24/25 21:34 Lantus Per Unit Charge SQ 05/24/25 20:59 24 units HS ANSLEY Administration Losartan Potassium 25 mg 04/25/25 09:00 04/25/25 07:52 Losartan Potassium 25 Mg Tab PO 05/25/25 08:59 25 mg DAILY ANSLEY Administration Magnesium Oxide 400 mg 04/25/25 09:00 04/25/25 07:52 Magnesium Oxide 400 Mg Tab PO 05/25/25 08:59 400 mg DAILY NASLEY Administration Lovaza 1gm--Non- 1 each 04/25/25 11:00 04/25/25 10:57 Formulary Patient's PO 05/25/25 10:59 1 ea Own Med DAILY ANSLEY Administration Pantoprazole Sodium 40 mg 04/25/25 09:00 04/25/25 07:52 Pantoprazole 40 Mg Tab PO 05/25/25 08:59 40 mg DAILY ANSLEY Administration Vitamin D 25 mcg 04/25/25 09:00 04/25/25 07:52 Cholecalciferol 25 Mcg (1000 Units) Tab PO 05/25/25 08:59 25 mcg DAILY ANSLEY Administration
--- NOTE | 2025-04-25 12:45 | Consultation ---
Date of Consultation April 25, 2025 Assessment & Plan (1) Carotid stenosis, left: This patient has asymptomatic bilateral carotid artery stenosis. The left side which is 50-69% does not need intervention at this time. We will follow this with repeat ultrasound in 6 months. The right carotid however has a preocclusive high grade stenosis present. This is an indication for intervention. We discussed endarterectomy versus TCAR procedure. He has elected to go ahead with a tcar of the right carotid. We will see him in the office post d\c and then get him scheduled for a TCAR of his right carotid artery. For this procedure he needs to remain on his ASA, Plavix, and Statin. Thank you very much for letting us participate in the care of this patient. History of Present Illness Reason for Consultation: Left internal carotid artery stenosis Attending Physician: Denise Arizmendi MD History of Present Illness This is a 75yo male who was admitted with increasing generalized weakness. He denied any focal findings. During his workup, his cta of the neck showed a 50- 69% narrowing of his left carotid. However the right internal carotid has a preocclusive lesion at its origin. He denies any symptoms of stroke, tia's, amaurosis fugax, or difficulty with speech. Allergies Allergy/AdvReac Type Severity Reaction Status Date / Time hydrocodone [From Vicodin] Allergy Severe itchy Verified 04/24/25 17:06 atorvastatin Allergy Intermediate muscle Verified 04/24/25 17:06 pains simvastatin [From Zocor] AdvReac Intermediate muscle Verified 04/24/25 17:06 pains niacin AdvReac Unknown flushing Verified 04/24/25 17:06 with burning and itching Home Medications Medication Instructions Recorded Confirmed Type magnesium oxide 400 mg (241.3 mg 400 mg PO DAILY #30 tabs 06/13/19 04/24/25 History magnesium) tablet cholecalciferol (vitamin D3) 25 1,000 units PO DAILY 12/16/19 04/24/25 History mcg (1,000 unit) capsule losartan 25 mg tablet 25 mg PO DAILY #90 tabs 06/16/20 04/24/25 Rx omega-3 acid ethyl esters 1 gram 1 cap PO DAILY #90 caps 11/04/20 04/24/25 Rx capsule (Lovaza) ezetimibe 10 mg tablet (Zetia) 10 mg PO DAILY #90 tabs 11/18/20 04/24/25 Rx fenofibrate 160 mg tablet 160 mg PO DAILY #90 tabs 03/09/21 04/24/25 Rx metformin 500 mg tablet,extended 1,000 mg PO QAM 04/24/25 04/24/25 History release 24 hr metformin 500 mg tablet,extended 500 mg PO HS 04/24/25 04/24/25 History release 24 hr omeprazole magnesium 20 mg 20 mg PO DAILY 04/24/25 04/24/25 History tablet,delayed release (Prilosec OTC) ondansetron HCl 4 mg tablet 4 mg PO Q8H PRN nausea and 04/24/25 04/24/25 Rx vomiting 5 days #14 tabs vardenafil 20 mg tablet 20 mg PO UD PRN Sexual Activity 04/24/25 04/24/25 History Patient History Medical History (Updated 04/25/25 @ 12:40 by Eleazar Seymour DO) Osteoarthritis Chronic kidney disease stage 3 Diabetes mellitus, type 2 NIDDM Hyperlipidemia Surgical History History of umbilical hernia repair History of colonoscopy Hx of tonsillectomy H/O adenoidectomy H/O vasectomy Family History Father Prostate cancer Urinary bladder cancer Unknown Diabetes Mother Breast cancer Other No family history of adverse response to anesthesia Denies family history of Colon cancer Ovarian cancer Myocardial infarction Social History Smoking Status: Former smoker Tobacco Type: Cigarettes Second Hand Exposure: Yes (hx as a child); Do You Dip or Chew Tobacco: No; Hx Alcohol Use: Yes Alcohol type: beer Alcohol Intake Frequency Comment: 1-2/ week Hx Substance Use: No Preferred Language: Emir[place] Communication Ability: Effective Visual Impairment: No Limitations Hearing Ability: Normal 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 Beliefs That Will Affect Care: None marital status: Current Living Situation: Spouse current occupational status: retired Feels Safe at Home: Yes Childhood Exposure to Second-Hand Smoke: Yes Dental Care, Regularly: Yes Physical Activity Frequency: 5-6 Times per Week Seatbelt Use: always Sunscreen Use: Yes Do you think of yourself as: straight/heterosexual Assistive Devices: Cane and Walker Review of Systems Review of Systems: All systems reviewed & are unremarkable except as noted in HPI & below Physical Exam Constitutional: WD/WN, vitals as above Respiratory: normal respiratory effort, lungs clear to auscultation Cardiovascular: RRR, no murmur, no edema Vessels: femoral pulses present and radial pulses present Extremities: normal capillary refill Gastrointestinal (Abdomen): Inspection/Auscultation: abdomen normal to inspection; abdomen not distended Percussion/Palpation: abdomen soft Neurologic: CN's II-XI intact bilaterally, normal sensation to monofilament and moves all extremities Psychiatric: A+Ox3, euthymic affect Results & Data Vital Signs (Past 12 Hours) Vital Signs Temp Pulse Resp BP Pulse Ox O2 Del Method 04/25/25 08:07 Room Air 04/25/25 07:39 36.9 C 95 H 18 145/82 H 95 Room Air
--- NOTE | 2025-04-25 12:58 | Hospitalist Progress Note ---
Date of Service April 25, 2025 Assessment & Plan (1) Nausea: (2) Weakness: (3) Type 2 diabetes mellitus: (4) Benign essential hypertension: (5) Mixed hyperlipidemia: (6) Hyperlipidemia: (7) Carotid stenosis, left: Plan 75-year-old male who presents to the ED on 04/24/2025 with complaints of worsening generalized weakness over the past 3 days. History of RA recently started on Rinvoq about 7 days ago Ambulatory dysfunction Generalized weakness Hyponatremia Reports worsening generalized weakness over the past 3 days that he could not get out of bed Head CT and MRI brain did not show acute abnormalities Neck CTA showed bilateral carotid stenosis (high grade at origin of CHINO, 50-69% of LICA, moderate focal stenosis of L vertebral artery) Vascular eval and recs noted. Vascular will make arrangement for TCAR on discharge Neuro recs noted Start aspirin and plavix Check lipid panel and A1c in AM Hyponatremia likely secondary to dehydration and poor solute intake. Continue gentle hydration Will need PT/OT. May likely need rehab Community-acquired pneumonia: Noted on imaging, also reports recent cough over the past few days Currently on IV cefepime/Doxy with concern for being immunocompromised Suspected UTI: UA positive Follow up urine culture in lab Hx RA: Recently started on Rinvoq 1 week ago, Patient reports has trialed many medications that has eventually stopped working Rinvoq currently on hold. to confirm dose on getting home so we can update home med list Hx DM2: Continue to hold metformin/glimepiride, also managed on Lantus 48 units at bedtime Continue ISS, lantus Hx HLD/HTN: Continue losartan, Zetia, fenofibrate Full code DVT prophylaxis: Sergiox I spent a total of 55 minutes coordinating, documenting and providing care for this patient excluding time spent in performance of separately billed services Admission and Anticipated Discharge Date Admission Date: April 24, 2025 Subjective Patient seen and examined at bedside Patient reports weakness Nausea has resolved Denied vomiting, abd pain, diarrhea reported he was coughing at home and had urinary incontinence which was unusual for him Currently denied any joint pain Physical Exam Constitutional: + well hydrated; no acute distress Appear weak. Requires support to sit up in bed Eyes: PERRL, conjunctivae normal, anicteric sclerae ENMT: external ear and nose normal, oropharynx normal Respiratory: normal respiratory effort, lungs clear to auscultation Cardiovascular: Rate/Rhythm: regular rate and regular rhythm Gastrointestinal (Abdomen): normal bowel sounds, soft, nontender, no hepatosplenomegaly Musculoskeletal: No pedal edema Neurologic: PERRL, EOMI, accommodation nl, no face palsy, no dysarthria Psychiatric: A+Ox3, euthymic affect Genitourinary: [place] in situ Results & Data Results & Data Vital Signs (Past 12 Hours) Vital Signs Temp Pulse Resp BP Pulse Ox O2 Del Method 04/25/25 08:07 Room Air 04/25/25 07:39 36.9 C 95 H 18 145/82 H 95 Room Air Laboratory Results Abnormal lab results 04/24/25 04/24/25 04/24/25 Range/Units 15:53 18:32 21:26 RBC (4.70-6.10) M/uL Hgb (14.0-18.0) g/dl Hct (42.0-52.0) % Plt Count (130-400) K/uL Lymph # (Auto) (1.20-3.40) K/uL [place] # (Auto) (0.11-0.59) K/uL Sodium (136-145) mmol/L Chloride (98-107) mmol/L Glucose (70-99(Fasting)) mg/dl POC Glucose 126 H 162 H (70-99) mg/dl Total Bilirubin (0.2-1.0) mg/dl Urine pH 8.0 H (4.5-7.5) Ur Specific [place] > 1.045 H (1.000-1.030) Urine Protein Trace H (Negative) Ur Leukocyte Esterase 1+ H (Negative) Urine WBC (Auto) 11-20 H (0-5) /hpf Urine Bacteria (Auto) 1+ H (None Seen) 04/25/25 04/25/25 04/25/25 Range/Units 06:22 07:41 11:27 RBC 4.16 L (4.70-6.10) M/uL Hgb 13.9 L (14.0-18.0) g/dl Hct 40.4 L (42.0-52.0) % Plt Count 121 L (130-400) K/uL Lymph # (Auto) 0.61 L (1.20-3.40) K/uL [place] # (Auto) 0.67 H (0.11-0.59) K/uL Sodium 131 L (136-145) mmol/L Chloride 97 L (98-107) mmol/L Glucose 144 H (70-99(Fasting)) mg/dl POC Glucose 143 H 218 H (70-99) mg/dl Total Bilirubin 1.1 H (0.2-1.0) mg/dl Urine pH (4.5-7.5) Ur Specific [place] (1.000-1.030) Urine Protein (Negative) Ur Leukocyte Esterase (Negative) Urine WBC (Auto) (0-5) /hpf Urine Bacteria (Auto) (None Seen)
[2025-04-25] MEDS: ASPIRIN 81 MG ECTAB PO SCH (14:31)
[2025-04-25] MEDS: CLOPIDOGREL BISULFATE 75 MG TAB PO SCH (14:31)
[2025-04-26 07:08] LABS: Hematocrit (blood only) 38.9 % (42.0-52.0); Hemoglobin 13.4 g/dl (14.0-18.0); Mean Corpuscular Hemoglobin 32.6 pg (25.0-34.0); Mean Corpuscular Volume 94.6 fL (80.0-100.0); Platelet Count 115 K/uL (130-400); RDW Standard Deviation 43.0 fL (36.4-46.3); Red Blood Count 4.11 M/uL (4.70-6.10); White Blood Count 5.09 K/ul (4.8-10.8)
[2025-04-26 07:28] LABS: Anion Gap 8.0 (3-11); Blood Urea Nitrogen 17.0 mg/dl (6-23); Calcium 9.1 mg/dl (8.6-10.3); Carbon Dioxide 24.0 mmol/L (21-32); Chloride 99.0 mmol/L (98-107); Cholesterol 149.0 mg/dl (0-200); Creatinine Clr Calc Pharmacy 73.1 ml/min; Glucose 143.0 mg/dl (70-99(Fasting)); HDL Cholesterol 36.0 mg/dl; Potassium 3.8 mmol/L (3.5-5.1); Sodium 131.0 mmol/L (136-145); Triglycerides 130.0 mg/dl (0-150)
[2025-04-26 07:45] LABS: Hemoglobin A1C 7.8 % (4.5-5.6)
--- NOTE | 2025-04-26 14:46 | Hospitalist Progress Note ---
Date of Service April 26, 2025 Assessment & Plan (1) Nausea: (2) Weakness: (3) Type 2 diabetes mellitus: (4) Benign essential hypertension: (5) Mixed hyperlipidemia: (6) Hyperlipidemia: (7) Carotid stenosis, left: Plan 75-year-old male who presents to the ED on 04/24/2025 with complaints of worsening generalized weakness over the past 3 days. 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 He is being managed for the following: Ambulatory dysfunction Generalized weakness Hyponatremia Reports worsening generalized weakness over the past 3 days that he could not get out of bed Head CT and MRI brain did not show acute abnormalities Neck CTA showed bilateral carotid stenosis (high grade at origin of CHINO, 50-69% of LICA, moderate focal stenosis of L vertebral artery) a1c 7.8, LDL 87, pt allergic to statins, c/w home ezetimibe. ECHO w/ no shunt, EF 55-60%, Gr I diastolic dysfxn. Vascular eval and recs noted. Vascular will make arrangement for TCAR on discharge Neuro recs noted, DAPT 21 days then daily ASA, echo. c/w aspirin 04/25 and plavix 04/25 Will need PT/OT. May likely need rehab Hyponatremia: likely secondary to dehydration and poor solute intake.s/p gentle hydration, monitor, encourage solute intake. improving. RUL nodule: CTA neck notes 9 mm right upper lobe pulmonary nodule. A nonemergent chest CT is recommended for further assessment and full evaluation of the thorax.. Will get CT chest. Community-acquired pneumonia: Noted on imaging (CTA neck), also reports recent cough over the past few days Currently on IV cefepime/Doxy with concern for being immunocompromised will get CT chest. Suspected UTI: UA positive Follow up urine culture in lab Pt on atb, see above. Hx RA: Recently started on Rinvoq 1 week ago, Patient reports has trialed many medications that has eventually stopped working Rinvoq currently on hold during acute illness Hx DM2: Continue to hold metformin/glimepiride, also managed on Lantus 48 units at bedtime Continue ISS, lantus Hx HLD/HTN: Continue losartan, Zetia, fenofibrate Full code DVT prophylaxis: Lovenox PT/OT, recommends rehab. Admission and Anticipated Discharge Date Admission Date: April 24, 2025 Subjective Patient was seen and examined at bedside. Patient was lying in bed, on room air, NAD, resting comfortably. Patient reports last bowel movement 2 days ago, reports no new acute event overnight. Patient reports eating okay, reports no nausea. Physical Exam Physical Exam: Constitutional: + well hydrated; no acute distress, appears weak. Eyes: PERRL, conjunctiva e normal, anicteri c sclerae ENMT: external ear and n ose normal, oropha rynx normal Respiratory: normal respiratory effort, lungs dominik ar to auscultation Cardiovascular: Rate/Rhythm: regul ar rate and regula r rhythm Gastrointestinal ( Abdomen): normal bowel sound s, soft, nontender , no hepatosplenom egaly Musculoskeletal: No pedal edema Neurologic: PERRL, EOMI, accom modation nl, no fa ce palsy, no dysar thria Psychiatric: A+Ox3, euthymic af fect Genitourinary: [place] in situ Results & Data Results & Data Vital Signs (Past 12 Hours) Vital Signs Temp Pulse Resp BP Pulse Ox O2 Del Method 04/26/25 07:17 36.7 C 96 H 16 121/81 91 Room Air
--- NOTE | 2025-04-26 18:28 | CT Scan Report ---
EXAM: CT chest diagnostic wo con CLINICAL HISTORY: further characterise rul nodule noted in cta neck. TECHNIQUE: Contiguous axial CT images of the chest were acquired without administration of intravenous contrast. Coronal and sagittal reconstructions were obtained. One of the following dose reduction techniques were utilized for this exam: Automated exposure control, adjustment of the mA and/or kV according to patient size, use of iterative reconstruction. COMPARISON: Prior chest X-ray dated 04/24/2025 was reviewed. FINDINGS: Lungs: Right apical well defined solid pulmonary nodule is seen measuring 7 mm. Bilateral predominantly paraseptal emphysematous changes are seen. Bilateral peripheral interlobular septal thickening, reticulations and honeycombing as well as ground glass densities, more pronounced at the left upper lobe and lingula; representing interstitial lung disease. Bilateral scattered fibrotic bands are noted. A calcified pleural based nodule is seen in the left lower lobe measuring 4.7 mm likely representing old granuloma. Other few tiny calcified nodules/old granulomas 1-2 mm are also seen involving posterior segment of right lower lung lobe. No pleural effusion. Mediastinum: Ectatic ascending aorta measuring 4.2 cm. The mediastinum is normal in size and contour. No mediastinal mass or abnormal lymphadenopathy. The heart size is within normal limits. Hilar Structures: The hilar structures appear normal without enlargement or abnormality. Atheromatous calcifications are seen involving the aorta and coronary arteries. Trachea and Main Bronchi: The trachea and main bronchi are patent without evidence of obstruction. Chest Wall: The chest wall is unremarkable with no evidence of soft tissue or bony abnormalities. Upper Abdomen: Fatty infiltration of the liver is noted Bones: Visualized osseous structures are normal, no evidence of fracture or lytic/sclerotic lesions. Spondylodegenerative changes of the thoracic spine. Diffuse osteopenic texture of the examined bones. IMPRESSION: 1. Right apical lung nodule 6 mm, for follow up after 6 months according to Fleishner guidelines. 2. Other smaller calcified nodules/old granulomas, that don`t require follow up. 3. Findings of interstitial lung disease as detailed. 4. Ectatic ascending aorta. Electronically signed by Kameron Payton 04-26-2025 6:27 PM
[2025-04-27 07:05] VITALS: BP 134/78; PULSE 88; RESP 16; TEMP 98.1; O2SAT 93
[2025-04-27 07:05] LABS: Hematocrit (blood only) 36.2 % (42.0-52.0); Hemoglobin 12.9 g/dl (14.0-18.0); Mean Corpuscular Hemoglobin 33.8 pg (25.0-34.0); Mean Corpuscular Volume 94.8 fL (80.0-100.0); Platelet Count 118 K/uL (130-400); RDW Standard Deviation 42.5 fL (36.4-46.3); Red Blood Count 3.82 M/uL (4.70-6.10); White Blood Count 4.77 K/ul (4.8-10.8)
[2025-04-27 07:19] LABS: Anion Gap 6.0 (3-11); Blood Urea Nitrogen 20.0 mg/dl (6-23); Calcium 9.4 mg/dl (8.6-10.3); Carbon Dioxide 29.0 mmol/L (21-32); Chloride 98.0 mmol/L (98-107); Creatinine Clr Calc Pharmacy 70.0 ml/min; Glucose 140.0 mg/dl (70-99(Fasting)); Magnesium 1.8 mg/dl (1.7-2.4); Potassium 4.1 mmol/L (3.5-5.1); Sodium 133.0 mmol/L (136-145)
[2025-04-27] MEDS: DOCUSATE SODIUM 100 MG CAP PO SCH (11:56)
[2025-04-27] MEDS: POLYETHYLENE (MIRALAX) 17 GM PACK PO SCH (11:56)
--- NOTE | 2025-04-27 12:09 | Discharge Summary ---
Date of Service April 27, 2025 Admission HPI Per Admitting Provider The patient is a 75-year-old male with a past medical history of RA, DM2, HLD, HTN who presents to the ED on 04/24/25 with complaints of generalized weakness slowly worsening over the past 3 days. Pt reports recently being started on rinvoq 1 week ago for RA. Symptoms started about 3 days ago. Patient's reports that the patient was able [place] walk [place] and he is barely able to get out of bed at this point. Also reports persistent nausea and lack of appetite over the past few days. On arrival to the ED, labs remarkable for NA 128, chloride 95, glucose 199, total bili 1.3 Chest x-ray shows: Some underlying, likely chronic thin curvilinear opacity which may represent fibrotic change or emphysema appears to be present. There is additionally an area of consolidation in the periphery of the mid left lung which is suspicious for infection. The cardiomediastinal silhouette and pulmonary vascularity are within normal limits. No pneumothorax. Neck CTA showed: 1. Advanced atherosclerotic plaque with high-grade/critical stenosis at the origin of the right internal carotid artery. There is only trace flow. The vessel is patent distally. 2. There is 50-69% focal stenosis at the origin of the left internal carotid artery. 3. The vertebral arteries are patent in the neck bilaterally and codominant. 4. There is moderate focal stenosis of the left vertebral artery at the skull base. 5. Emphysema. 6. There is a 9 mm right upper lobe pulmonary nodule. A nonemergent chest CT is recommended for further assessment and full evaluation of the thorax. 7. Airspace consolidation is suggested in the left midlung on the head paper tester tomogram. Correlate with a chest x-ray. 8. Additional findings as above. Head CTA showed: 1. No acute intracranial findings. Mild motion artifact. 2. No large vessel occlusion. No intracranial aneurysm. 3. 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 Abdomen/pelvis showed: 1. No acute infectious or inflammatory findings are identified in the abdomen or pelvis. 2. Cardiomegaly and emphysema. 3. Right-sided nephrolithiasis. 4. There are right larger than left inguinal hernias. The right inguinal hernia contains a nonobstructed segment of small bowel. 5. The liver is enlarged and steatotic. 6. Additional findings as above. Urinalysis was sent a urine culture is pending The patient be admitted for further workup of worsening generalized weakness Admission Exam Per Admitting Provider Constitutional: WD/WN, vitals as above Eyes: PERRL, conjunctivae normal, anicteric sclerae ENMT: external ear and nose normal, oropharynx normal Respiratory: normal respiratory effort, lungs clear to auscultation Cardiovascular: RRR, no murmur, no edema (Bilateral +2 lower extremity edema) Gastrointestinal (Abdomen): normal bowel sounds, soft, nontender, no hepatosplenomegaly Musculoskeletal: no cyanosis or clubbing, extremities motor strength 5/5 Skin: no rashes, warm and dry Neurologic: PERRL, EOMI, accommodation nl, no face palsy, no dysarthria Psychiatric: A+Ox3, euthymic affect Lymphatic: no cervical or axillary lymphadenopathy Principal Diagnosis Ambulatory dysfunction Generalized weakness Hyponatremia RUL nodule Possible Community-acquired pneumonia Possible UTI Discharge Exam Constitutional: + well hydrated; no acute distress, manasa ears weak. Eyes: PERRL, conjunctivae normal, anicteric sclerae ENMT: external ear and nose normal, oropharynx normal Respiratory: normal respiratory effort, lungs clear to auscultation Cardiovascular: Rate/Rhythm: regular rate and regular rhythm Gastrointestinal (Abdomen): normal bowel sounds, soft, nontender, no hepatosplenomegaly Musculoskeletal: No pedal edema Neurologic: PERRL, EOMI, accommodation nl, no face palsy, no dysarthria Psychiatric: A+Ox3, euthymic affect Discharge Data Allergies Allergy/AdvReac Type Severity Reaction Status Date / Time hydrocodone [From Vicodin] Allergy Severe itchy Verified 04/24/25 17:06 atorvastatin Allergy Intermediate muscle Verified 04/24/25 17:06 pains simvastatin [From Zocor] AdvReac Intermediate muscle Verified 04/24/25 17:06 pains niacin AdvReac Unknown flushing Verified 04/24/25 17:06 with burning and itching Consultations 04/24/25 15:53 ED Decision to Admit Stat 04/24/25 16:33 Consult Vascular Surgery Routine 04/24/25 17:00 Consult Neurology Routine Ordered Studies 04/24/25 13:39 CT Abd and Pelvis [CT abd pelvis IV con only] Stat 04/24/25 14:47 CT angio head wo/w Stat CT angio neck with con Stat 04/24/25 17:00 MRI Brain [MR brain wo/w con] Routine 04/24/25 17:28 US venous doppler LE BI Urgent 04/26/25 14:42 CT chest diagnostic wo con Routine Hospital Course (1) Nausea: (2) Weakness: (3) Type 2 diabetes mellitus: (4) Benign essential hypertension: (5) Mixed hyperlipidemia: (6) Hyperlipidemia: (7) Carotid stenosis, left: Plan 75-year-old male who presents to the ED on 04/24/2025 with complaints of worsening generalized weakness over the past 3 days. History of RA recently started on Rinvoq about 7 days ago [employer]. He was managed for the following: Ambulatory dysfunction Generalized weakness Hyponatremia Reports worsening generalized weakness over the past 3 days that he could not get out of bed Head CT and MRI brain did not show acute abnormalities Neck CTA showed bilateral carotid stenosis (high grade at origin of CHINO, 50-69% of LICA, moderate focal stenosis of L vertebral artery) a1c 7.8, LDL 87, pt allergic to statins, c/w home ezetimibe. ECHO w/ no shunt, EF 55-60%, Gr I diastolic dysfxn. Vascular eval and recs noted. Vascular will make arrangement for TCAR on d ischarge Neuro recs noted, DAPT 21 days then daily ASA, echo. c/w aspirin 04/25 and plavix 04/25 PT/OT evaled, recs is rehab. Pt and his wants to go home today but doesn't want rehab, they are ok w/ HH. Notified CM to set up HH. Pt reports his strength has improved significantly and insists home would be what he wants and wants be gone today. Hyponatremia: likely secondary to dehydration and poor solute intake.s/p gentle hydration, monitor, encourage solute intake. improving. RUL nodule: CTA neck notes 9 mm right upper lobe pulmonary nodule. A nonemergent chest CT is recommended for further assessment and full evaluation of the thorax.. d/w pt and his about rul nodule and f/u CT chest need in 6 months. also d/w them was concern of ILD in CT scan finding and need to f/u w/ pulm upon discharge. they voiced understanding. Community-acquired pneumonia: Noted on imaging (CTA neck), also reports recent cough over the past few days Currently on IV cefepime/Doxy with concern for being immunocompromised complete antibiotic course. Suspected UTI: UA positive Follow up urine culture in lab Pt on atb, see above. Hx RA: Recently started on Rinvoq 1 week ago, Patient reports has trialed many medications that has eventually stopped working Rinvoq currently on hold during acute illness Hx DM2: Continue to hold metformin/glimepiride, also managed on Lantus 48 units at bedtime Continue ISS, lantus Hx HLD/HTN: Continue losartan, Zetia, fenofibrate Full code DVT prophylaxis: Lovenox PT/OT, recommends rehab. Patient and his were communicated following instructions on the day of discharge: Follow-up with your primary care physician within a week time and likely you will need labs CBC/CMP/magnesium/phosphorus. Follow-up with vascular surgery in 2 to 3 weeks time upon discharge. Neurology also evaluated you while in hospital, recommends that you be on aspirin and Plavix for 21 days starting 04/25/2025. From May 17 onwards, discontinue Plavix and continue with daily baby aspirin. Avoid omeprazole while on Plavix. Continue with home health/physical therapy upon discharge. As discussed at the bedside, you will need to get repeat CT scan of the chest in about 6 months time to follow-up on right upper lobe nodule in the lung. You will be discharged on antibiotic to complete the course for possible pneumonia and UTI. As discussed at the bedside, there is concerns of interstitial lung disease per imaging while in hospital, establish with pulmonology in 1 to 3 weeks time upon discharge. Coordinate with your PCP office to set up referral. Take medications as prescribed. Please make sure that you are able to get your medications today by calling your pharmacy before you leave the hospital so that your treatment continuity is not broken. Home Health Attestation I certify that this patient is under my care and that I, or a physicians medical assistant instructor working with me, had a face to-face encounter that meets the home health [id number] encounter requirements with this patient. The encounter with the patient was in whole, or in part, for the following medical condition, which is the primary reason for home health care (list medical condition): I certify that, based on my findings, the following services are medically necessary home health services: My clinical findings support the need for the above services because: Home Safety Assessment Medication Compliance and Monitoring Effective of New Medications OT Assess ADL Status and Restore Function w ADLs PT Assessment for Endurance / Balance / Strength PT Eval for Safety and Mobility PT Eval for Safety, Gait Training, Assistive Devices PT Gait and Balance Training, Strengthening and Safety Safety Skilled Nsg Assessment Skilled Nsg Instruction New Medications S/S to Report to Provider Vital Signs Further, I certify that my clinical findings support that this patient is homebound (i.e. absences from home require considerable and taxing effort and are for medical reasons or nondenominational services or infrequently or of short duration when for other reasons) because: Certification for Home Health Services: Based on the above findings, I certify that this patient is confined to the home and needs intermittent [facility] care, physical therapy and/or speech therapy or continues to need occupational therapy. The patient is under my care, and I have initiated the establishment of the plan of care. This patient will be followed by a physician who will periodically review the plan of care. Total Time Total Time Spent Total Time Spent (In Minutes): 45 Discharge Plan Discharge Items Patient Disposition: Home - Home Health Services Reason For Visit: WEAKNESS Discharge Diagnosis: Ambulatory dysfunction Generalized weakness Hyponatremia RUL nodule Possible Community-acquired pneumonia Possible UTI Condition on Discharge: Good Activity: Per Instructions section Activity Comment: c/w HH PT Non-emergency contact: Primary Care Provider Call non-emergency contact if: you have any medication questions Follow-up/Referrals: Alonzo Rivera MD [Physician] - (Call the office to schedule an appointment after discharged.) Eleazar Tena MD [Primary Care Provider] - Diet: Carb Consistent or DM2 Addtl Attending Provider Instructions: Follow-up with your primary care physician within a week time and likely you will need labs CBC/CMP/magnesium/phosphorus. Follow-up with vascular surgery in 2 to 3 weeks time upon discharge. Neurology also evaluated you while in hospital, recommends that you be on aspirin and Plavix for 21 days starting 04/25/2025. From May 17 onwards, discontinue Plavix and continue with daily baby aspirin. Avoid omeprazole while on Plavix. Continue with home health/physical therapy upon discharge. As discussed at the bedside, you will need to get repeat CT scan of the chest in about 3 months time to follow-up on right upper lobe nodule in the lung. You will be discharged on antibiotic to complete the course for possible pneumonia and UTI. As discussed at the bedside, there is concerns of interstitial lung disease per imaging while in hospital, establish with pulmonology in 1 to 3 weeks time upon discharge. Coordinate with your PCP office to set up referral. Take medications as prescribed. Please make sure that you are able to get your medications today by calling your pharmacy before you leave the hospital so that your treatment continuity is not broken. Pending Studies at Discharge: Yes Stand-Alone Forms: My [facility], Smoking Cessation Medications and DC Order Prescriptions: New ondansetron HCl 4 mg tablet 4 mg PO Q8H PRN (Reason: nausea and vomiting) 5 Days Qty: 14 0RF doxycycline hyclate 100 mg Capsule 100 mg PO BID 3 Days Qty: 6 0RF clopidogrel 75 mg Tablet 75 mg PO QAM 18 Days Qty: 18 0RF aspirin 81 mg Tablet,Delayed Release (Dr/Ec) 81 mg PO QAM Qty: 30 0RF pantoprazole 40 mg Tablet,Delayed Release (Dr/Ec) 40 mg PO DAILY Qty: 30 0RF cefdinir 300 mg capsule 300 mg PO BID 4 Days Qty: 8 0RF Probiotic 3 billion cell capsule 3,000 mmu cells PO DAILY 7 Days Qty: 7 0RF Rx Instructions: administer with a meal Continued omega-3 acid ethyl esters [Lovaza] 1 gram capsule 1 cap PO DAILY Qty: 90 3RF ezetimibe [Zetia] 10 mg tablet 10 mg PO DAILY Qty: 90 3RF fenofibrate 160 mg tablet 160 mg PO DAILY Qty: 90 1RF Rx Instructions: qam magnesium oxide 400 mg (241.3 mg magnesium) tablet 400 mg PO DAILY Qty: 30 Rx Instructions: qam cholecalciferol (vitamin D3) 25 mcg (1,000 unit) capsule 1,000 units PO DAILY losartan 25 mg tablet 25 mg PO DAILY Qty: 90 3RF Rx Instructions: qpm metformin 500 mg Tablet Extended Release 24 Hr 500 mg PO HS metformin 500 mg Tablet Extended Release 24 Hr 1,000 mg PO QAM vardenafil 20 mg Tablet 20 mg PO UD PRN (Reason: Sexual Activity) Held Rinvoq 15 mg Tablet Extended Release 24 Hr 15 mg PO DAILY Hold Instructions: Resume on 05/01/25. No Action omeprazole magnesium [Prilosec OTC] 20 mg Tablet,Delayed Release (Dr/Ec) 20 mg PO DAILY Discharge Orders: Discharge Order (Routine); Ordered 04/27/25 Ordered By: Thomas Sullivan/Other Patient Handouts: Managing Type 2 Diabetes Admission Data Admit Date/Time: 04/24/25 16:14 Attending Provider: Thomas Ledesma Admit Provider: Bry Dorman Primary Care Provider: Eleazar Tena Other Providers: Bry Dorman; Alonzo Rivera; Eleazar Seymour; [facility]
== END 2025-04-27 15:02 | disposition home health service (06) | DRG 689 ==
LOC: ED 11:03 → EDINP 16:14 → SUATTDRO 16:14 → 3N 17:00

== ENCOUNTER 2025-07-29 10:19 | Inpatient (IN) ==
--- NOTE | 2025-06-25 13:57 | Communication Note ---
Patient is scheduled for Right TCAR with Dr. Rivera 07/01/25. Patient spoke with PAT RN via phone 06/25/25- he indicated that he has discontinued Plavix given recent epistaxis ([facility] ER visit/packing 06/2025). I notified surgeon's office that patient had discontinued Plavix. Received secure [employer] message update from Susi Rosado with surgeon's office that surgeon had been made aware of patient's discontinuation of Plavix in setting of epistaxis. Surgeon decision to cancel 07/01/25 Right TCAR. She states they will be discussing rescheduling patient as endarterectomy.
--- NOTE | 2025-07-21 13:17 | Anesthesiology Consultation ---
Date of Service July 21, 2025 Assessment & Plan Chart Review Chart Review: Acceptable Risk for Surgery and Patient NOT seen in Pre Admission Testing History Surgery Operation Date: 07/29/25 11:20 Proposed Procedures p Right Transcarotid Artery Revascularization - Alonzo Rivera MD Height/Weight Height: 6 ft 3 in Weight: 108.862 kg Allergies Allergy/AdvReac Type Severity Reaction Status Date / Time hydrocodone [From Vicodin] Allergy Severe itchy Verified 07/18/25 13:08 atorvastatin Allergy Intermediate muscle Verified 07/18/25 13:08 pains upadacitinib [From Rinvoq] Allergy "completely Verified 07/18/25 13:08 crashed" simvastatin [From Zocor] AdvReac Intermediate muscle Verified 07/18/25 13:08 pains niacin AdvReac Unknown flushing Verified 07/18/25 13:08 with burning and itching Medications Home Medications Medication Instructions Recorded Confirmed Last Taken magnesium oxide 400 mg (241.3 mg 400 mg PO HS #30 tabs 06/13/19 07/18/25 Unknown magnesium) tablet cholecalciferol (vitamin D3) 25 1,000 units PO QAM 12/16/19 07/18/25 Unknown mcg (1,000 unit) capsule omega-3 acid ethyl esters 1 gram 1 cap PO DAILY #90 caps 11/04/20 07/18/25 Unknown capsule (Lovaza) metformin 500 mg tablet,extended 1,000 mg PO QAM 04/24/25 07/18/25 Unknown release 24 hr metformin 500 mg tablet,extended 500 mg PO HS 04/24/25 07/18/25 04/23/25 release 24 hr vardenafil 20 mg tablet 20 mg PO UD PRN Sexual Activity 04/24/25 07/18/25 Unknown ezetimibe 10 mg tablet (Zetia) 10 mg PO QAM 06/25/25 07/18/25 Unknown fenofibrate 160 mg tablet 160 mg PO QAM 06/25/25 07/18/25 Unknown insulin glargine 100 unit/mL (3 48 unit subcut HS 06/25/25 07/18/25 Unknown mL) subcutaneous pen (Lantus Solostar U-100 Insulin) losartan 25 mg tablet 25 mg PO QPM 06/25/25 07/18/25 Unknown pantoprazole 40 mg tablet,delayed 40 mg PO QAM 06/25/25 07/18/25 Unknown release Past Medical History Medical History Carotid stenosis, left Benign essential hypertension Hx of colonic polyp Severe epistaxis last seen [facility] 07/13/25 for "nose bleed caused by my blood thinner, no bleeding since cauterized in ER" previously on Plavix, pt stated "it was causing my nose to bleed a lot, so I stopped taking it." denies issues since Osteoarthritis Chronic kidney disease stage 3; pt unaware of this? Diabetes mellitus, type 2 IDDM Hyperlipidemia Past Family History Family History Father Prostate cancer Urinary bladder cancer Unknown Diabetes Mother Breast cancer Other No family history of adverse response to anesthesia Denies family history of Colon cancer Ovarian cancer Myocardial infarction Past Surgical History Surgical History Hx of appendectomy spring 2023 History of umbilical hernia repair History of colonoscopy Hx of tonsillectomy H/O adenoidectomy H/O vasectomy Social History Smoking Status: Never smoker Do You Dip or Chew Tobacco: No Smoking End Date: many years ago Hx Alcohol Use: Yes Alcohol type: beer alcohol intake frequency: holidays/special occasions only Hx Substance Use: No substance use type: does not use
--- NOTE | 2025-07-28 15:57 | History & Physical Report ---
Date of Service July 28, 2025 History of Present Illness Primary Care Provider: Eleazar Tena MD Chief Complaint rm#1 return to discuss options for carotid intervention as he has stopped his aspirin and plavix due to epistaxis Subjective I had the pleasure of seeing Joe today for follow-up. As you know he is a 75-year-old gentleman with a severe right internal carotid artery stenosis in need of intervention. He was on Plavix and aspirin but developed a nosebleed. He claims its much better now however he does not want to go back on the Plavix. His only other option now other than conservative treatment is for a carotid endarterectomy. Objective Vitals & Measurements HR: 96 (Monitored) BP: 142/80 SpO2: 95% Physical Exam Constitutional: In general patient is a healthy-appearing well-nourished well- developed elderly male in no distress. He is alert oriented without any focal deficits. His carotids do demonstrate a faint bruit. His heart is regular, lungs are decreased but clear. Radial pulses are +3. Lower extremity distal pulses are +2. Assessment/Plan 1. Bilateral carotid artery stenosis At this point we went over the risks options benefits of a right carotid endarterectomy. He does not want to go back on the Plavix. He will restart his low-dose aspirin on a daily basis. He does have an appoint with the ENT next month but does not want to wait till this appointment and even if something is found that is treatable in his nose it is causing the bleeding he still elects to go ahead with an endarterectomy and staying off the Plavix. He understood all the risks involved and is documented on the consent form. His surgery will be scheduled in the near future. Thank you very much for letting us participate in the care of this patient. Sincerely, Migel Rivera MD Attestation I have personally spent ____20_ minutes performing [id number] and [id number] activities on this date of service. Activities Include: _x_ review of the medical record _x_ obtaining a history _x_ physical exam/evaluation __ review labs __ review radiology reports __x counseling/educating patient/family/caregiver __ discussion/referral to other healthcare professional _x_ documenting care in the medical record __ independent interpretation of results __ communication of results to patient/family/caregiver __ coordination of care Signature Line Electronic Signature on File Alonzo Rivera MD Author Signature Dt/Tm: 07/07/2025 03:15 PM Statistical Secretary Juan Anguiano [facility] [place] [address], [address] [place] [address] EJS Result Type: .Outpt Ltr Date of Service: July 07, 2025 14:44 EDT Authorization Status: Final Subject: Follow Up Visit Author or Import Date: MD Rivera Eugene J on July 07, 2025 15:15 EDT Verified By: MD Rivera Eugene J on July 07, 2025 15:15 EDT Encounter info: [id number], [place] [id number], Clinic, 07/07/2025 - 07/07/2025 Allergies Allergy/AdvReac Type Severity Reaction Status Date / Time hydrocodone [From Vicodin] Allergy Severe itchy Verified 07/18/25 13:08 atorvastatin Allergy Intermediate muscle Verified 07/18/25 13:08 pains upadacitinib [From Rinvoq] Allergy "completely Verified 07/18/25 13:08 crashed" simvastatin [From Zocor] AdvReac Intermediate muscle Verified 07/18/25 13:08 pains niacin AdvReac Unknown flushing Verified 07/18/25 13:08 with burning and itching Home Medications Medication Instructions Recorded Confirmed Type magnesium oxide 400 mg (241.3 mg 400 mg PO HS #30 tabs 06/13/19 07/18/25 History magnesium) tablet cholecalciferol (vitamin D3) 25 1,000 units PO QAM 12/16/19 07/18/25 History mcg (1,000 unit) capsule omega-3 acid ethyl esters 1 gram 1 cap PO DAILY #90 caps 11/04/20 07/18/25 Rx capsule (Lovaza) metformin 500 mg tablet,extended 1,000 mg PO QAM 04/24/25 07/18/25 History release 24 hr metformin 500 mg tablet,extended 500 mg PO HS 04/24/25 07/18/25 History release 24 hr vardenafil 20 mg tablet 20 mg PO UD PRN Sexual Activity 04/24/25 07/18/25 History ezetimibe 10 mg tablet (Zetia) 10 mg PO QAM 06/25/25 07/18/25 History fenofibrate 160 mg tablet 160 mg PO QAM 06/25/25 07/18/25 History insulin glargine 100 unit/mL (3 48 unit subcut HS 06/25/25 07/18/25 History mL) subcutaneous pen (Lantus Solostar U-100 Insulin) losartan 25 mg tablet 25 mg PO QPM 06/25/25 07/18/25 History pantoprazole 40 mg tablet,delayed 40 mg PO QAM 06/25/25 07/18/25 History release Past Med/Surg History Problem List Carotid stenosis, left Nausea (Acute) Weakness (Acute) Statin myopathy (Acute) Encounter for pre-operative examination Encounter for pre-operative examination Benign neoplasm of colon Stage 3 chronic kidney disease Mixed hyperlipidemia Male erectile disorder of organic origin Benign essential hypertension Type 2 diabetes mellitus Dog bite of finger (Acute) Medical History Carotid stenosis, left Benign essential hypertension Hx of colonic polyp Severe epistaxis last seen [facility] 07/13/25 for "nose bleed caused by my blood thinner, no bleeding since cauterized in ER" previously on Plavix, pt stated "it was causing my nose to bleed a lot, so I stopped taking it." denies issues since Osteoarthritis Chronic kidney disease stage 3; pt unaware of this? Diabetes mellitus, type 2 IDDM Hyperlipidemia Surgical History Hx of appendectomy spring 2023 History of umbilical hernia repair History of colonoscopy Hx of tonsillectomy H/O adenoidectomy H/O vasectomy Family History Father Prostate cancer Urinary bladder cancer Unknown Diabetes Mother Breast cancer Other No family history of adverse response to anesthesia Denies family history of Colon cancer Ovarian cancer Myocardial infarction Social History Smoking Status: Never smoker Tobacco Type: Cigarettes Smoking End Date: many years ago; Second Hand Exposure: Yes (hx as child); Do You Dip or Chew Tobacco: No; Tobacco Cessation Education Requested by Patient: No Hx Alcohol Use: Yes Alcohol type: beer Alcohol Intake Frequency Comment: 1-2/ week Hx Substance Use: No Preferred Language: Setswana Communication Ability: Effective Visual Impairment: No Limitations Hearing Ability: Normal Crack Off Person Required: No Beliefs That Will Affect Care: None marital status: Current Living Situation: Spouse current occupational status: retired Other Information That Helps Us Care for You: No Feels Safe at Home: Yes Safety Concerns: Feels Safe At This Time Childhood Exposure to Second-Hand Smoke: Yes Dental Care, Regularly: Yes Physical Activity Frequency: 5-6 Times per Week Seatbelt Use: always Sunscreen Use: Yes Do you think of yourself as: straight/heterosexual Assistive Devices: None Review of Systems All systems reviewed & are unremarkable except as noted in HPI & below
[~2025-07-29 10:19] MED LIST changes: -CHOL100010 PO; +DEXAMETHASONE SOD INJ 4 MG/ML VIAL ONE; -GLC/500 PO; +GLYCOPYRROLATE 0.2 MG/ML VIAL ONE; +HEPARIN SOD (PORCINE) 1000 UNIT/ML ONE; +LIDOCAINE 2% 2 ML VIAL/AMP(20MG/ML) INFIL ONE; -LIRA18IN SQ; -LOSA25TA18 PO; +MIDAZOLAM HCL 1 MG/ML 2ML VIAL ONE; +ONDANSETRON INJ 2 MG/ML 2 ML VIAL ONE; +PHENYLEPHRINE HCL 25 MG/250 ML NSS IV ONE; +PROPOFOL IV EMULSION 10 MG/ML 20 ML VIAL IV ONE; +PROTAMINE SULFATE 10 MG/ML 5 ML VIAL IV ONE; +ROCURONIUM BROMIDE 10 MG/ML 5 ML VIAL IV ONE; +SUGAMMADEX SODIUM 200 MG/2 ML VIAL IV ONE
--- NOTE | 2025-07-29 10:20 | History & Physical Bridge Note ---
Date of Service July 29, 2025 History & Physical Bridge Note I have examined the patient, reviewed the History & Physical and in the interval since the performance of the History & Physical I have noted the following changes of clinical significance: no changes noted
[2025-07-29] MEDS: SODIUM CHLORIDE 0.9% 1,000 ML IV SCH (10:53)
[2025-07-29] MEDS: LR 15ML/HR IV SCH (10:53)
[2025-07-29 11:14] LABS: Anion Gap 8.0 (3-11); Blood Urea Nitrogen 13.0 mg/dl (6-23); Calcium 10.1 mg/dl (8.6-10.3); Carbon Dioxide 29.0 mmol/L (21-32); Chloride 101.0 mmol/L (98-107); Creatinine Clr Calc Pharmacy 85.6 ml/min; Glucose 149.0 mg/dl (70-99(Fasting)); Potassium 4.3 mmol/L (3.5-5.1); Sodium 138.0 mmol/L (136-145)
[2025-07-29] MEDS: GELATIN SPONGE SZ 100 ONE (12:34)
[2025-07-29] MEDS: THROMBIN FOR SOLN 20000 UNIT KIT ONE (12:34)
[2025-07-29] MEDS: ceFAZolin 330 MG/ML 1 GM VIAL ONE ×2 (12:35)
[2025-07-29] MEDS: HEPARIN (PORCINE) 1000 UNIT/ML 10 ML (CATH LAB USE ONLY) ONE (12:45)
[2025-07-29] MEDS: LIDOCAINE 1% LOCAL 20 ML VIAL ONE (12:45)
--- NOTE | 2025-07-29 12:46 | Operative Report ---
Post Operative Report Pre & Post Diagnosis Operation Date: 07/29/25 11:20 Pre-Op Diagnosis: Right Internal Carotid Artery Stenosis Post-Op Diagnosis: Right Internal Carotid Artery Stenosis I identified the patient and participated in the time-out.: Yes Procedure Operation Date: 07/29/25 11:20 Actual Procedures p Right Carotid Endarterectomy(Right) - Alonzo Rivera MD Surgeon Alonzo Rivera MD Awning Maker NickiPAC Estimated Blood Loss 80 Findings Consistent with Post-Op Diagnosis Specimens none Anesthesia Type General Complications none Disposition Accompanied Patient To Recovery: No Disposition: Recovery Room Indications This is a 75-year-old gentleman who was found to have a severe right internal carotid artery stenosis. Due to the bleed he could not tolerate the antiplatelet medication for TCAR and elected to go ahead with the endarterectomy. I have discussed the risks options and benefits of the procedure with the patient. The patient understands the risks options and benefits and agrees to the procedure. Description of Procedure The patient was taken to the operating room and placed in supine position. After general anesthesia was accomplished the right side of the neck was prepped and draped in a sterile manner. The patient was identified and a timeout performed. A longitudinal neck incision was then made coursing along the medial border of the sternocleidomastoid muscle. The incision was taken down through the platysmal layer. The facial vein was identified, ligated, and divided. The common carotid artery was then seen. It was dissected free down to the omohyoid muscle. The dissection was carried upward until the external carotid artery and superior thyroid artery was seen. The superior thyroid artery was slung with a 2-0 silk suture. The external carotid was slung with a red rubber vessel loop. Next the dissection was carried up along the internal carotid artery. This was carried upward to beyond the area of narrowing. The hypoglossal nerve was seen and preserved. The patient was heparinized. After adequate heparinization was accomplished, the internal, external, and common carotid arteries were clamped. A longitudinal arteriotomy was started on the common carotid artery and extended upward along the internal carotid artery to a point beyond the area of narrowing. There was calcified plaque of the internal carotid artery origin causing approximately 85-90% narrowing. A Doppler shunt was then placed in the internal, followed by the common carotid artery and held in place with Masoud clamps. There was good back bleeding seen from the internal carotid artery. The endarterectomy was then started in the appropriate plane on the common carotid artery. This was carried upward and the external carotid was everted and endarterectomized. The endarterectomy was then carried up along the internal carotid artery till a nice feathering breakoff point was accomplished beyond the end of the plaque. The endarterectomy was then carried down further on the common carotid artery. At end of the arteriotomy, the plaque was then transected. All loose debris and flaps werer removed. There is no distal flap seen at the end of the endarterectomy site. The arteriotomy then closed using bovine patch and 5-0 Prolene running suture. This was done in the usual vascular fashion. Prior to completing the closure, the doppler shunt was removed and the internal and common carotid arteries were reclamped. Backbleeding and forward bleeding was allowed to occur. The flow surface was irrigated with heparinized saline. The final few sutures were then placed and securely tied. Clamps were then removed off the external and common carotid arteries. The clamp was then removed the internal carotid artery. Good distal flow was seen. Adequate hemostasis was seen of the patch. The wound was inspected and adequate hemostasis was obtained. The wound was irrigated with antibiotic solution. It was then closed with a running 3-0 Vicryl suture for the platysmal layer and a 4-0 subcuticular Vicryl suture for the skin edges. Dermabond was used for dressing. The patient left the operation room in satisfactory condition and tolerated the procedure well. All needle and sponge counts were correct at the end of the procedure. Salina Weathers Pac assisted due to lack of resident availability and was necessary for prepping, draping, retraction, wound closure defects, subQ and skin closure and was necessary for the case. I attest to the content of the Intraoperative Record and any orders documented therein. Any exceptions are noted below.
[2025-07-29] MEDS: BUPIVACAINE/EPINEPHRINE 0.5% MPF 1:200,000 30 ML VIAL ONE (12:52)
[2025-07-29] MEDS ORDERED: ATROPINE SULFATE 0.1 MG/ML 10ML SYR IV PRN (13:12)
[2025-07-29] MEDS ORDERED: ONDANSETRON INJ 2 MG/ML 2 ML VIAL IV PRN (13:12)
[2025-07-29] MEDS ORDERED: PROMETHAZINE HCL 6.25 MG in SODIUM CHLORIDE 0.9% 50 ML IV PRN (13:12)
[2025-07-29] MEDS ORDERED: HYDROmorphone INJ 1 MG/ML SYRINGE IV PRN (13:12)
[2025-07-29] MEDS ORDERED: PHARMACY GLYCEMIC MGMT CONSULT PRN (13:54)
[2025-07-29] MEDS ORDERED: VARDENAFIL PO PRN (13:54)
[2025-07-29] MEDS ORDERED: STAT IV Infusion **Titration per Protocol STA (13:54)
[2025-07-29] MEDS ORDERED: MoRPHine SULFATE 4 MG/ML 1 ML CARP\\VIAL IV PRN (13:54)
[2025-07-29] MEDS: PHENYLEPHRINE/NSS 25 MG/250 ML BAG IV PRN (14:00)
--- NOTE | 2025-07-29 14:26 | Anesthesiology Progress Note ---
Date of Service July 29, 2025 Anesthesia Post Procedure Vital Signs Vital Signs: Temp Pulse Pulse Resp BP BP BP 07/29/25 14:15 59 L 16 140/61 07/29/25 14:05 62 14 111/52 L 07/29/25 13:55 36.4 C L 63 14 94/43 L 07/29/25 13:45 68 18 91/45 L 07/29/25 13:35 67 14 93/45 L 07/29/25 13:25 68 14 93/42 L 07/29/25 13:15 72 16 114/70 101/47 L 07/29/25 13:07 36.2 C L 77 16 113/64 100/47 L 07/29/25 10:45 36.5 C 95 H 20 165/96 H 161/100 H Pulse Ox O2 Del Method O2 Flow Rate 07/29/25 14:15 97 Nasal Cannula 2 07/29/25 14:05 97 Nasal Cannula 2 07/29/25 13:55 98 Nasal Cannula 3 07/29/25 13:45 96 Nasal Cannula 3 07/29/25 13:35 97 Nasal Cannula 3 07/29/25 13:25 96 Nasal Cannula 3 07/29/25 13:15 96 Nasal Cannula 3 07/29/25 13:07 98 Nasal Cannula 3 07/29/25 10:45 98 Room Air Pain Intensity Bilateral Lower Back: Pain Intensity: 7 Transfer of Care Handoff Completed per policy Notes Mental Status: alert / awake / arousable and participated in evaluation Patient Amnestic to Procedure: Yes Nausea / Vomiting: adequately controlled Pain: adequately controlled Airway Patency, RR, SpO2: stable & adequate BP & HR: stable & adequate Hydration State: stable & adequate Anesthetic Complications: no major complications apparent
[2025-07-29] MEDS: LACTATED RINGER'S 1,000 ML IV SCH (15:00)
[2025-07-29] MEDS ORDERED: DEXTROSE 50% 50 ML SYRINGE IV PRN (15:15)
[2025-07-29] MEDS ORDERED: GLUCAGON FOR INJ 1 MG VIAL SQ PRN (15:15)
[2025-07-29] MEDS ORDERED: CARBOHYDRATES FOR HYPOGLYCEMIA PO PRN (15:15)
[2025-07-29] MEDS ORDERED: GLUCOSE 10 TAB/TUBE PO PRN (15:15)
[2025-07-29] MEDS ORDERED: GLUCOSE 40% GEL 15 GM TUBE PO PRN (15:15)
[2025-07-29] MEDS: INSULIN ASPART PER UNIT CHARGE SC SCH (16:37)
--- NOTE | 2025-07-29 19:03 | Pharmacy Report ---
Pharmacy Glycemic Short Note 2 - Date of Service July 29, 2025 - Glycemic Short BSG Results (Last 24 hours): 07/29/25 07/29/25 07/29/25 10:28 10:59 13:12 Glucose 149 H POC Glucose 127 H 121 H 07/29/25 16:15 Glucose POC Glucose 134 H OUTPATIENT ANTIDIABETIC REGIMEN: * Glargine 48 units SC HS * Metformin 1 g qAM, 500 mg qPM A1c = pending ASSESSMENT: * Joe is a 75 yo T2DM s/p Right Carotid Endarterectomy * Good glycemic control thus far this admission. * Will base initial insulin dosing on regimen from recent past admission (April 2025). During that time, patient was well controlled on Lantus 24 units HS (50% reduction compared to home dose) and Novolog CF/CR 20/7. PLAN FOR INPATIENT GLYCEMIC CONTROL: * Hold outpatient oral diabetes medications * Basal insulin * Lantus 24 units SQ qPM * Bolus insulin * NovoLog per scale ACHS or Q6hrs while NPO * Goal Range: Low 120 mg/dL - High 160 mg/dL * Correction Factor: 20 mg/dL/unit * Nutritional / Prandial insulin per carb ratio of 1 unit per 7 grams CHO consumed
--- NOTE | 2025-07-29 19:17 | Critical Care Consultation ---
Date of Consultation July 29, 2025 Assessment & Plan (1) Carotid stenosis, bilateral: (2) S/P carotid endarterectomy: Plan Reason Critically Ill: Patient is POD #0 from planned CEA of the RIGHT. Neuro - Carotid artery stenosis bilateral, POD #0 from RT. CEA CAM ICU: NEGATIVE - Pain control per surgical team - antibiotics per surgical team - Drains per surgical team - antiplatelet medications per surgical team - Neuroexams and NV exams - Follow hemodynamics and neurological exams- goal SBP <180 >100- will hold his Cozaar at this time pending hemodynamics- currently low 100-110 on SBP - Follow renal indices Cardiac - Rebecca cute needs. HX HTN, HLD - Radial Angela in place- likely able to remove in morning - As above- follow hemodynamics- PRN medications are available as well as Cardene infusion Respiratory - No acute needs - no note of CPAP/BiPAP needs GI - No acute needs - Tolerating diet- continue heart healthy carb consistent diet RENAL/LYTES - No acute needs; HX of CKDIII - Follow renal indicies- hold Cozaar as above - No acute needs ENDO - DMII - insulin sliding scale- DMII- hold oral agents- goal BG <180 HEME - No acute needs - follow HGB levels- transfuse for acute blood loss or HGB <7 ID - No concern for infectious etiology at this time. LINES/IV ACCESS - PIV Continue use of these lines DVT PROPHYLAXIS - SCDS, chemoprophylaxis contraindicated s/p vascular surgery at this time DISPO: ICU for close monitoring of hemodynamics and neurological exam I have personally spent 45 minutes of time in the direct management of this patient. This is a life/limb threatening event. This includes time spent evaluating patient, direct bedside care, chart review, placing orders, interpretation of diagnostic studies, discussion with consultants, patient, and family members, as well as other required patient management activities. This time is exclusive of all separately billable procedures, and separate from and in addition to any other service time. Thank you for allowing us to participate in the care of this patient. Please refer to my attending physician's documentation for any further recommendations. Supervising Physician Co-Signing Physician Notes Patient is a 75-year-old male admitted to the ICU status post right CEA by Dr. Rivera. Patient tolerated the procedure well without any intraoperative complications. Required some rosalina for a short period of time last night however was weaned off of this today. He has been up out of bed and feeling well today. Having a small amount of neck pain but no significant swelling. Eager to go home if possible. On examination today he has slight bruising at the surgical site but no hematoma appreciated. Surgical incision is clean dry and intact. There is a without any oozing. Range of motion is normal of the neck. No dizziness reported. Will heart and lungs are clear. Patient is stable to be discharged to the floor to home as seen appropriate by surgical provider. History of Present Illness Reason for Consultation: S/P RT. CEA - ICU monitoring Requesting Physician: Alonzo Rivera MD Attending Physician: Alonzo Rivera MD History of Present Illness 75 YOM with medical history of: DMII, HGB A1C, HLD, HTN, RA, CKDIII, bilateral carotid artery stenosis. Patient found to have progressed stenosis of RT Carotid during admission for weakness in Apr 2025, he is know POD#0 from RIGHT CEA performed by Dr. Rivera. Patient is evaluated in the ICU in his room post procedure. He is sitting up reading his book and had just finished dinner. Patient is not on any vasoactive medications currently and is on room air. He reports pain is controlled, no vision changes, difficulty talking or swallowing. CODE: FULL Allergies Allergy/AdvReac Type Severity Reaction Status Date / Time hydrocodone [From Vicodin] Allergy Severe itchy Verified 07/29/25 10:35 atorvastatin Allergy Intermediate muscle Verified 07/29/25 10:35 pains upadacitinib [From Rinvoq] Allergy "completely Verified 07/29/25 10:35 crashed" simvastatin [From Zocor] AdvReac Intermediate muscle Verified 07/29/25 10:35 pains niacin AdvReac Unknown flushing Verified 07/29/25 10:35 with burning and itching Home Medications Medication Instructions Recorded Confirmed Type magnesium oxide 400 mg (241.3 mg 400 mg PO HS #30 tabs 06/13/19 07/29/25 History magnesium) tablet cholecalciferol (vitamin D3) 25 1,000 units PO QAM 12/16/19 07/29/25 History mcg (1,000 unit) capsule omega-3 acid ethyl esters 1 gram 1 cap PO DAILY #90 caps 11/04/20 07/29/25 Rx capsule (Lovaza) metformin 500 mg tablet,extended 1,000 mg PO QAM 04/24/25 07/29/25 History release 24 hr metformin 500 mg tablet,extended 500 mg PO HS 04/24/25 07/29/25 History release 24 hr vardenafil 20 mg tablet 20 mg PO UD PRN Sexual Activity 04/24/25 07/29/25 History ezetimibe 10 mg tablet (Zetia) 10 mg PO QAM 06/25/25 07/29/25 History fenofibrate 160 mg tablet 160 mg PO QAM 06/25/25 07/29/25 History insulin glargine 100 unit/mL (3 48 unit subcut HS 06/25/25 07/29/25 History mL) subcutaneous pen (Lantus Solostar U-100 Insulin) losartan 25 mg tablet 25 mg PO QPM 06/25/25 07/29/25 History pantoprazole 40 mg tablet,delayed 40 mg PO QAM 06/25/25 07/29/25 History release Patient History Medical History Carotid stenosis, left Benign essential hypertension Hx of colonic polyp Severe epistaxis last seen [facility] 07/13/25 for "nose bleed caused by my blood thinner, no bleeding since cauterized in ER" previously on Plavix, pt stated "it was causing my nose to bleed a lot, so I stopped taking it." denies issues since Osteoarthritis Chronic kidney disease stage 3; pt unaware of this? Diabetes mellitus, type 2 IDDM Hyperlipidemia Surgical History Hx of appendectomy spring 2023 History of umbilical hernia repair History of colonoscopy Hx of tonsillectomy H/O adenoidectomy H/O vasectomy Family History Father Prostate cancer Urinary bladder cancer Unknown Diabetes Mother Breast cancer Other No family history of adverse response to anesthesia Denies family history of Colon cancer Ovarian cancer Myocardial infarction Social History Smoking Status: Never smoker Tobacco Type: Cigarettes Smoking End Date: many years ago; Second Hand Exposure: Yes (hx as child); Do You Dip or Chew Tobacco: No; Tobacco Cessation Education Requested by Patient: No Hx Alcohol Use: Yes Alcohol type: beer Alcohol Intake Frequency Comment: 1-2/ week Hx Substance Use: No Preferred Language: Slovenian Communication Ability: Effective Visual Impairment: No Limitations Hearing Ability: Normal Toy Packer Required: No Beliefs That Will Affect Care: None marital status: Current Living Situation: Spouse current occupational status: retired Other Information That Helps Us Care for You: No Feels Safe at Home: Yes Safety Concerns: Feels Safe At This Time Childhood Exposure to Second-Hand Smoke: Yes Dental Care, Regularly: Yes Physical Activity Frequency: 5-6 Times per Week Seatbelt Use: always Sunscreen Use: Yes Do you think of yourself as: straight/heterosexual Assistive Devices: None Review of Systems Review of Systems: REVIEW OF SYSTEMS: Constitutional: No fever, sweats or chills Eyes: No diplopia, no worsening or blurred vision ENT: normal hearing, no trouble swallowing Respiratory: No cough, sputum, dyspnea at rest or on exertion Cardiovascular: No chest pain, tightness or palpitations Abdomen: No pain, nausea, vomiting, diarrhea or constipation Musculoskeletal: No joint pain, calf pain, swelling Neurologic: No weakness, numbness/tingling, or balance problems Psychiatric: No anxiety or depression Skin: No rash or itch Physical Exam Physical Exam: PHYSICAL EXAM: General: awake, alert, no apparent distress Neuro: AAO x 3, speech clear and appropriate, no facial droop, tongue midline, phonating without hoarseness, facial sensation is intact and equal, strength intact bilaterally 5/5, sensation intact and equal all extremities and dermatomes, no pronator drift Chest: equal rise and fall of the chest, no accessory muscle use, no heaves or thrills, Clear to auscultation, on room air, Cardiac: Regular rate and rhythm, telemetry reviewed, skin warm dry, cap refill <3 seconds, peripheral pulses +2 no JVD, no murmur, no edema GI: NABS x 4 quadrants, soft, nontender to palpation, no rebound, guarding or tenderness : Spontaneously voiding, no pain, no CVA tenderness, Extremities: Normal inspection, no peripheral edema or erythema, calfs nontender to palpation Psych: Normal mood and affect Skin: no rash or erythema Results & Data Results & Data Vital Signs (Past 12 Hours) Vital Signs Temp Pulse Pulse Pulse Resp BP BP 07/29/25 19:06 36.7 C 07/29/25 18:03 69 25 H 07/29/25 18:00 125/71 07/29/25 18:00 125/71 07/29/25 17:42 68 15 07/29/25 17:21 68 19 07/29/25 17:06 91 H 27 H 07/29/25 17:00 121/71 07/29/25 17:00 121/71 07/29/25 16:57 88 20 07/29/25 16:30 84 18 07/29/25 16:18 89 18 07/29/25 16:00 139/75 07/29/25 16:00 57 L 18 07/29/25 15:57 62 19 07/29/25 15:39 55 L 21 07/29/25 15:15 64 6 L 07/29/25 15:14 36.5 C 07/29/25 15:07 69 12 114/69 07/29/25 15:00 07/29/25 14:45 63 14 07/29/25 14:30 62 16 07/29/25 14:15 59 L 16 07/29/25 14:05 62 14 07/29/25 13:55 36.4 C L 63 14 07/29/25 13:45 68 18 07/29/25 13:35 67 14 07/29/25 13:25 68 14 07/29/25 13:15 72 16 114/70 07/29/25 13:07 36.2 C L 77 16 113/64 07/29/25 10:45 36.5 C 95 H 20 165/96 H BP BP Pulse Ox O2 Del Method O2 Flow Rate 07/29/25 19:06 07/29/25 18:03 92 07/29/25 18:00 07/29/25 18:00 07/29/25 17:42 92 07/29/25 17:21 93 07/29/25 17:06 93 07/29/25 17:00 07/29/25 17:00 07/29/25 16:57 89 L 07/29/25 16:30 93 07/29/25 16:18 91 07/29/25 16:00 07/29/25 16:00 92 07/29/25 15:57 90 07/29/25 15:39 91 07/29/25 15:15 92 07/29/25 15:14 07/29/25 15:07 95 Room Air 07/29/25 15:00 Room Air 07/29/25 14:45 127/52 L 96 Nasal Cannula 2 07/29/25 14:30 134/67 96 Nasal Cannula 2 07/29/25 14:15 140/61 97 Nasal Cannula 2 07/29/25 14:05 111/52 L 97 Nasal Cannula 2 07/29/25 13:55 94/43 L 98 Nasal Cannula 3 07/29/25 13:45 91/45 L 96 Nasal Cannula 3 07/29/25 13:35 93/45 L 97 Nasal Cannula 3 07/29/25 13:25 93/42 L 96 Nasal Cannula 3 07/29/25 13:15 101/47 L 96 Nasal Cannula 3 07/29/25 13:07 100/47 L 98 Nasal Cannula 3 07/29/25 10:45 161/100 H 98 Room Air Laboratory Results Abnormal Labs 07/29/25 07/29/25 07/29/25 10:28 10:59 13:12 Glucose 149 H POC Glucose 127 H 121 H 07/29/25 16:15 Glucose POC Glucose 134 H Medications Administered Home Medications magnesium oxide 400 mg (241.3 mg magnesium) tablet 400 mg PO HS #30 tabs 06/13/19 [History Confirmed 07/29/25] cholecalciferol (vitamin D3) 25 mcg (1,000 unit) capsule 1,000 units PO QAM 12/16/19 [History Confirmed 07/29/25] omega-3 acid ethyl esters 1 gram capsule (Lovaza) 1 cap PO DAILY #90 caps 11/04/20 [Rx Confirmed 07/29/25] metformin 500 mg tablet,extended release 24 hr 1,000 mg PO QAM 04/24/25 [History Confirmed 07/29/25] metformin 500 mg tablet,extended release 24 hr 500 mg PO HS 04/24/25 [History Confirmed 07/29/25] vardenafil 20 mg tablet 20 mg PO UD PRN Sexual Activity 04/24/25 [History Confirmed 07/29/25] ezetimibe 10 mg tablet (Zetia) 10 mg PO QAM 06/25/25 [History Confirmed 07/29/25] fenofibrate 160 mg tablet 160 mg PO QAM 06/25/25 [History Confirmed 07/29/25] insulin glargine 100 unit/mL (3 mL) subcutaneous pen (Lantus Solostar U-100 Insulin) 48 unit subcut HS 06/25/25 [History Confirmed 07/29/25] losartan 25 mg tablet 25 mg PO QPM 06/25/25 [History Confirmed 07/29/25] pantoprazole 40 mg tablet,delayed release 40 mg PO QAM 06/25/25 [History Confirmed 07/29/25] Active Medications Dextrose (Dextrose 50% 50 Ml Syringe) 25 - 50 ml IV UD PRN; Protocol PRN Reason: Hypoglycemia Protocol Stop: 08/28/25 15:14 Ezetimibe (Ezetimibe 10 Mg Tab) 10 mg PO QAM [facility] Stop: 08/29/25 08:59 Fenofibrate (Fenofibrate Nanocrystallized 145 Mg Tablet) 145 mg PO QAM [facility] Stop: 08/29/25 08:59 Fish Oil (Tatum-3 (Purified Fish Oil) 1 Gm Cap) 1 cap PO DAILY [facility] Stop: 08/29/25 08:59 Glucagon (Glucagon For Inj 1 Mg Vial) 1 mg SQ UD PRN; Protocol PRN Reason: Hypoglycemia Protocol Stop: 08/28/25 15:14 Glucose (Glucose 40% Gel 15 Gm Tube) 15 - 30 gm PO UD PRN; Protocol PRN Reason: Hypoglycemia Protocol Stop: 08/28/25 15:14 Glucose (Glucose 10 Tab/Tube) 4 - 8 tab PO UD PRN; Protocol PRN Reason: Hypoglycemia Protocol Stop: 08/28/25 15:14 Cefazolin Sodium (Ancef 2000mg) 2,000 mg in 15 mls @ 3.75 mls/min IV Q8H [place]; Protocol Stop: 07/30/25 02:33 Last Admin: 07/29/25 17:36 Dose: 3.75 mls/min Phenylephrine HCl (Phenylephrine/Nss) 25 mg in 250 mls @ 0 mls/hr IV .Q0M PRN; Protocol PRN Reason: For SBP below 100 Stop: 08/28/25 13:53 Last Titration: 07/29/25 18:00 Dose: 0 mcg/kg/min, 0 mls/hr Nicardipine HCl 25 mg/ Sodium (Chloride) 250 mls @ 50 mls/hr IV .Q5H PRN; Protocol PRN Reason: Hypertension (see Goal SBPs) Stop: 08/28/25 13:53 Insulin Aspart (Insulin Aspart Per Unit Charge) 0 units SC ACHS [facility] Stop: 08/28/25 16:29 Last Admin: 07/29/25 16:37 Dose: 6 units Insulin Glargine (Lantus Per Unit Charge) 24 units SC HS [facility] Stop: 08/28/25 20:59 Losartan Potassium (Losartan Potassium 25 Mg Tab) 25 mg PO QPM [facility] Stop: 08/28/25 20:59 Magnesium Oxide (Magnesium Oxide 400 Mg Tab) 400 mg PO DAILY [facility] Stop: 08/29/25 08:59 Miscellaneous (Carbohydrates For Hypoglycemia ) 15 - 30 gm PO UD PRN PRN Reason: Hypoglycemia Treatment Stop: 08/28/25 15:14 Miscellaneous Information (Pharmacy Glycemic Mgmt Consult) 1 each N/A UD PRN; Protocol PRN Reason: Consult Stop: 08/28/25 13:53 Morphine Sulfate (Morphine Sulfate 4 Mg/Ml 1 Ml Carp\\Vial) 1 - 4 mg IV Q2H PRN PRN Reason: Severe Pain (Scale 7, 8, 9,10) Stop: 08/12/25 13:53 Oxycodone/Acetaminophen (Oxycodone/Acetaminophen 5mg/325mg Tab) 1 - 2 tab PO Q4H PRN PRN Reason: Pain (Scale 3,4,5,6) Stop: 08/12/25 13:53 Pantoprazole Sodium (Pantoprazole 40 Mg Tab) 40 mg PO QAM [facility] Stop: 08/29/25 08:59 Vitamin D (Cholecalciferol 25 Mcg (1000 Units) Tab) 25 mcg PO QAM [facility] Stop: 08/29/25 08:59 Coding Level of Care Code 65710 IN/OBS CONSULT LVL 3,45M Diagnoses Carotid stenosis, bilateral I65.23 S/P carotid endarterectomy Z98.890
[2025-07-29] MEDS: LANTUS PER UNIT CHARGE SC SCH (20:16)
[2025-07-29] MEDS ORDERED: LOSARTAN POTASSIUM 25 MG TAB PO SCH (21:00)
[2025-07-30] MEDS: EZETIMIBE 10 MG TAB PO SCH (07:35)
[2025-07-30] MEDS: OMEGA-3 (PURIFIED FISH OIL) 1 GM CAP PO SCH (07:35)
[2025-07-30] MEDS: CHOLECALCIFEROL 25 MCG (1000 UNITS) TAB PO SCH (07:35)
[2025-07-30] MEDS: FENOFIBRATE NANOCRYSTALLIZED 145 MG TABLET PO SCH (07:35)
[2025-07-30 07:44] LABS: Hemoglobin A1C 6.9 % (4.5-5.6)
[2025-07-30] MEDS: MAGNESIUM OXIDE 400 MG TAB PO SCH (07:56)
[2025-07-30 11:48] VITALS: O2SAT 97
--- NOTE | 2025-07-30 13:26 | Discharge Summary ---
Date of Service July 30, 2025 Admission HPI Per Admitting Provider Chief Complaint rm#1 return to discuss options for carotid intervention as he has stopped his aspirin and plavix due to epistaxis Subjective I had the pleasure of seeing Joe today for follow-up. As you know he is a 75-year-old gentleman with a severe right internal carotid artery stenosis in need of intervention. He was on Plavix and aspirin but developed a nosebleed. He claims its much better now however he does not want to go back on the Plavix. His only other option now other than conservative treatment is for a carotid endarterectomy. Objective Vitals & Measurements HR: 96 (Monitored) BP: 142/80 SpO2: 95% Physical Exam Constitutional: In general patient is a healthy-appearing well-nourished well- developed elderly male in no distress. He is alert oriented without any focal deficits. His carotids do demonstrate a faint bruit. His heart is regular, lungs are decreased but clear. Radial pulses are +3. Lower extremity distal pulses are +2. Assessment/Plan 1. Bilateral carotid artery stenosis At this point we went over the risks options benefits of a right carotid endarterectomy. He does not want to go back on the Plavix. He will restart his low-dose aspirin on a daily basis. He does have an appoint with the ENT next month but does not want to wait till this appointment and even if something is found that is treatable in his nose it is causing the bleeding he still elects to go ahead with an endarterectomy and staying off the Plavix. He understood all the risks involved and is documented on the consent form. His surgery will be scheduled in the near future. Thank you very much for letting us participate in the care of this patient. Sincerely, Migel Rivera MD Attestation I have personally spent ____20_ minutes performing [id number] and [id number] activities on this date of service. Activities Include: _x_ review of the medical record _x_ obtaining a history _x_ physical exam/evaluation __ review labs __ review radiology reports __x counseling/educating patient/family/caregiver __ discussion/referral to other healthcare professional _x_ documenting care in the medical record __ independent interpretation of results __ communication of results to patient/family/caregiver __ coordination of care Signature Line Electronic Signature on File Alonzo Rivera MD Author Signature Dt/Tm: 07/07/2025 03:15 PM [employer] Juan Anguiano [facility] [place] [address], [address] [place] [address] EJS Result Type: .Outpt Ltr Date of Service: July 07, 2025 14:44 EDT Authorization Status: Final Subject: Follow Up Visit Author or Import Date: MD Rivera Eugene J on July 07, 2025 15:15 EDT Verified By: MD Rivera Eugene J on July 07, 2025 15:15 EDT Encounter info: [id number], [place] [id number], Clinic, 07/07/2025 - 07/07/2025 Admission Exam Per Admitting Provider Constitutional: In general patient is a healthy-appearing well-nourished well- developed elderly male in no distress. He is alert oriented without any focal deficits. His carotids do demonstrate a faint bruit. His heart is regular, lungs are decreased but clear. Radial pulses are +3. Lower extremity distal pulses are +2. Principal Diagnosis 1. s/p R CCEA 2. R ICA stenosis Discharge Exam Constitutional WD/WN, vitals as above cooperative and comfortable; not in distress Neck trachea midline Respiratory normal respiratory effort, lungs clear to auscultation Auscultation: + diminished lung sounds Cardiovascular Rate/Rhythm: regular rate and regular rhythm Vessels: posterior tibial pulses present and dorsalis pedis pulses present; + abnormal peripheral pulses Extremities: normal capillary refill; no edema Gastrointestinal (Abdomen) Inspection/Auscultation: abdomen normal to inspection and normal bowel sounds Percussion/Palpation: abdomen soft; abdomen nontender Musculoskeletal no cyanosis or clubbing, extremities motor strength 5/5 Skin no rashes, warm and dry Neurologic moves all extremities and awake; no focal motor deficits and not confused Psychiatric A+Ox3, euthymic affect Discharge Data Allergies Allergy/AdvReac Type Severity Reaction Status Date / Time hydrocodone [From Vicodin] Allergy Severe itchy Verified 07/29/25 10:35 atorvastatin Allergy Intermediate muscle Verified 07/29/25 10:35 pains upadacitinib [From Rinvoq] Allergy "completely Verified 07/29/25 10:35 crashed" simvastatin [From Zocor] AdvReac Intermediate muscle Verified 07/29/25 10:35 pains niacin AdvReac Unknown flushing Verified 07/29/25 10:35 with burning and itching Consultations 07/29/25 13:54 Consult [employer] Routine Procedures Performed Operation Date: 07/29/25 11:20 Actual Procedures p Right Carotid Endarterectomy(Right) - Alonzo Rivera MD Hospital Course (1) S/P carotid endarterectomy: POD #1 after uncomplicated R CEA. Doing well post op. OK for d/c home today. Total Time Total Time Spent Total Time Spent (In Minutes): 0 Discharge Plan Discharge Items Patient Disposition: Home - Self-Care Reason For Visit: Right Internal Carotid Artery Stenosis Discharge Diagnosis: 1. s/p R CEA 2. R ICA stenosis Activity: Per Instructions section Non-emergency contact: Primary Care Provider and Surgeon Call non-emergency contact if: you have any medication questions, your symptoms worsen, your pain is not controlled, your pain is concerning for you, you have a fever, your wound has increased redness and your wound has increased drainage Follow-up/Referrals: Alonzo Rivera MD [Physician] - (Follow up with Dr Rivera or Salina Weathers PA-C, in 2 weeks. ) Eleazar Tena MD [Primary Care Provider] - (Follow up with your PCP within 2 weeks) Diet: Carb Consistent or DM2 and Heart Healthy Addtl Attending Provider Instructions: SPECIAL CARE INSTRUCTIONS: Diet: * You may return to previous diet. Medications: * Continue to take Aspirin as directed. Incision Care: * You may shower, but do not rub incision. You may let the warm soapy water run over it. Be sure to dry the incision well after bathing. * Do not shave directly over the incision until it is healed. * DO NOT IMMERSE THE INCISION IN A TUB/POOL/etc. UNTIL HEALED. Restrictions: * Do not drive for at least one week or if you are still taking any narcotic pain medication. * Do not lift anything heavier than a gallon of milk for one week after going home. Possible Complications: * Numbness - It is normal to have some numbness around the incision. Numbness can extend beyond the incision to areas of the neck, ear and face. The numbness is due to bruising of nerves during the surgery and will gradually improve over a period of months. * Hoarseness/Difficulty Speaking and Swallowing - The bruising of nerves in the neck can also cause a hoarse voice, difficulty speaking or swallowing. This may improve over time, HOWEVER, if it continues for more than a few days please contact our office ([phone]). * Excessive Swelling - There will be some swelling immediately after surgery which usually resolves within one week. If you notice that the swelling is getting worse, notify your surgeon ([phone]). * Drainage/Bleeding - If there is any drainage or bleeding, it should be a very small amount (less than a teaspoon per day). If you have excessive bleeding or drainage from the incision, call your surgeon ([phone]) right away. ACTIVATION OF EMERGENCY MEDICAL SYSTEM: Call 911, immediately, if you experience any of the following: Warning Signs and Symptoms of Stroke: * Sudden numbness or weakness of the face, arm or leg, especially on one side of the body * Sudden confusion, trouble speaking or understanding * Sudden trouble seeing in one or both eyes * Sudden trouble walking, dizziness, loss of balance or coordination * Sudden severe headache with no cause Do not delay calling 911 if you experience any warning signs or symptoms of a stroke. Delay in seeking medical attention may affect what treatments can be given to you. Risk Factors for Stroke: You can reduce your chances of stroke by working with your medical provider to adopt a healthy lifestyle. Some specific ways to lower your chance of stroke are: * If you are a smoker, now is the time to stop smoking cigarettes * If you are diabetic, improve the control of your blood sugars * Avoid excessive amounts of alcohol * Control high blood pressure * Lose weight if you are overweight * Be sure to lead an active lifestyle * Eat a healthy diet low in salt, cholesterol and fat You should know about other risk factors for stroke that you are unable to control. These include: * Age 55 years or older * Male gender * Certain racial groups: , or / * Family History of Stroke, Mini stroke or Heart Attack * Sickle Cell Disease You will be receiving a call from the Vascular Surgery Nurse after you are discharged. FOLLOW UP VISIT: It is important for you to keep your follow up appointments with your medical provider. Keep any scheduled doctor appointments. Pending Studies at Discharge: No Stand-Alone Forms: My [facility] 9[employer], Smoking Cessation Medications and DC Order Prescriptions: New oxycodone-acetaminophen [Percocet] 5-325 mg Tablet 1 tab PO Q6 PRN (Reason: pain) Qty: 15 0RF Continued omega-3 acid ethyl esters [Lovaza] 1 gram capsule 1 cap PO DAILY Qty: 90 3RF magnesium oxide 400 mg (241.3 mg magnesium) tablet 400 mg PO HS Qty: 30 Rx Instructions: qam cholecalciferol (vitamin D3) 25 mcg (1,000 unit) capsule 1,000 units PO QAM metformin 500 mg Tablet Extended Release 24 Hr 500 mg PO HS metformin 500 mg Tablet Extended Release 24 Hr 1,000 mg PO QAM vardenafil 20 mg Tablet 20 mg PO UD PRN (Reason: Sexual Activity) insulin glargine [Lantus Solostar U-100 Insulin] 100 unit/mL (3 mL) Insulin Pen 48 unit SUBCUT HS Rx Instructions: took 24 units last night pantoprazole 40 mg tablet,delayed release (DR/EC) 40 mg PO QAM losartan 25 mg tablet 25 mg PO QPM Rx Instructions: qpm ezetimibe [Zetia] 10 mg tablet 10 mg PO QAM fenofibrate 160 mg tablet 160 mg PO QAM Rx Instructions: qam Discharge Orders: Discharge Order (Routine); Ordered 07/30/25 Ordered By: Salina Sulliavn/Other Patient Handouts: Managing Type 2 Diabetes Admission Data Admit Date/Time: 07/29/25 10:20 Attending Provider: Alonzo Rivera Admit Provider: Alonzo Rivera Primary Care Provider: Eleazar Tena Other Providers: Smooth Miller; Melvin Edwards; Jeremy Ndiaye; Donato Davis; Tay Headley; Tyra Hunt; Philip Massey; Rich Ramsey; Sania Kramer
--- NOTE | 2025-07-30 13:29 | Surgery Progress Note ---
Date of Service July 30, 2025 Assessment & Plan (1) S/P carotid endarterectomy: Plan: POD #1 after uncomplicated R CEA. Doing well post op. OK for d/c home today. Admission and Anticipated Discharge Date Admission Date: July 29, 2025 Subjective 75 yo m POD #1 after uncomplicated RCEA, seen in f/u today. Pt states feeling ok and wishes to go home. Admits R neck incisional dicomfort and sore throat. No new concerns otherwise. Review of Systems Review of Systems: All systems reviewed & are unremarkable except as noted in HPI & below Physical Exam Constitutional: WD/WN, vitals as above cooperative and comfortable; not in distress Neck: trachea midline Rneck incision C/D/I, minimal edema, ecchymosis. +tenderness. Respiratory: normal respiratory effort, lungs clear to auscultation Auscultation: + diminished lung sounds Cardiovascular: Rate/Rhythm: regular rate and regular rhythm Vessels: posterior tibial pulses present and dorsalis pedis pulses present; + abnormal peripheral pulses Extremities: normal capillary refill; no edema Gastrointestinal (Abdomen): Inspection/Auscultation: abdomen normal to inspection and normal bowel sounds Percussion/Palpation: abdomen soft; abdomen nontender Musculoskeletal: no cyanosis or clubbing, extremities motor strength 5/5 Skin: no rashes, warm and dry Neurologic: moves all extremities and awake; no focal motor deficits and not confused Psychiatric: A+Ox3, euthymic affect Results & Data Vital Signs (Past 12 Hours) Vital Signs Temp Pulse Resp BP Pulse Ox O2 Del Method 07/30/25 11:12 74 19 97 Room Air 07/30/25 11:00 137/79 07/30/25 11:00 137/79 07/30/25 10:54 77 19 90 07/30/25 10:03 73 20 98 07/30/25 10:01 135/93 07/30/25 10:01 135/07/30/25 10:01 135/07/30/25 09:48 70 23 97 07/30/25 09:03 78 34 H 95 07/30/25 09:00 128/82 07/30/25 08:51 83 22 91 07/30/25 08:01 128/80 07/30/25 08:01 128/80 07/30/25 08:00 93 H 19 91 07/30/25 07:57 36.6 C 07/30/25 07:56 88 07/30/25 07:45 Room Air 07/30/25 07:00 77 18 99 Room Air 07/30/25 07:00 132/74 07/30/25 06:03 88 14 100 07/30/25 05:48 69 0 L 97 07/30/25 05:03 65 4 L 95 07/30/25 04:57 64 13 98 07/30/25 04:00 78 6 L 112/62 98 07/30/25 03:00 74 17 111/62 07/30/25 02:53 36.4 C L 07/30/25 02:24 76 14 110/60 96
[2025-07-30 13:36] VITALS: BP 144/78; PULSE 92; RESP 20
[2025-07-30 13:37] VITALS: TEMP 98.6
== END 2025-07-30 14:30 | disposition home or self-care (01) | DRG 39 ==
LOC: ASU 10:29 → 1E 10:30